=== PATIENT | male | born 1985 | race Caucasian/White ===

== ENCOUNTER 2022-06-19 14:22 | Inpatient (IN) | payer OTHER, SELFPAY ==
[2022-06-19 14:34] VITALS: BP 147/93; BP 148/87; PULSE 85; PULSE 97; RESP 20; TEMP 37.2; O2SAT 97; O2SAT 98; BMI 21.1
--- NOTE | 2022-06-19 14:42 | PC.NURSE ---
Patient AOx 4 no distress noted no respiratory issues reported. Relapse on Heroin this weekend used this AM, abrasions noted to BUE patient unsure of cause reports blacking out this weekend. Patietn ambulatory with steady independent gait. Will CTM
[2022-06-19 15:28] LABS: Amphetamine Screen Urine Not Detected (Not Detect); Barbiturates, Urine Not Detected (Not Detect); Benzodiazepines Screen Urine Not Detected (Not Detect); Cannabinoid Screen Urine POSITIVE (Not Detect); Cocaine Screen Urine POSITIVE (Not Detect); Fentanyl, urine POSITIVE (Not Detect); Opiate Screen Urine POSITIVE (Not Detect); Phencyclidine Screen Urine Not Detected (Not Detect)
--- NOTE | 2022-06-19 15:48 | MHC.CARE ---
Pt was evaluated by [facility] in the community and is a bedsearch at this time.
--- NOTE | 2022-06-19 15:53 | MHC.CARE ---
1400 Call from [facility] clinician, Faiza who provided information regarding this patient who was evaluated in the community after he called seeking help, disposition inpatient psychiatric care. By report, is pressured and tangential, has several self-inflicted prasad on his arms, used two bags of Fentanyl today. [facility] will continue to follow patient while he is here and conduct bedsearch.
[2022-06-19 16:50] LABS: MANUAL DIFF FLAG NO
[2022-06-19 16:51] LABS: Basophils Percent Auto 0.2 % (0-2); Eosinophils Absolute Auto 0.1 X10*3/uL (0.0-0.4); Eosinophils Percent Auto 0.6 % (0-4); Hematocrit 37.9 % (42.0-52.0); Hemoglobin 12.9 g/dl (14.0-18.0); Imm Gran Abs Auto 0.03 X10*3/uL (0.00-0.03); Imm Gran Pct Auto 0.3 % (0.0-0.4); Lymphocytes Absolute Auto 2.3 X10*3/uL (1.2-4.9); Lymphocytes Percent Auto 23.5 % (20-40); Mean Corpuscular Volume 85.2 fL (80.0-98.0); Mean Platelet Volume 9.2 fL (9.4-12.4); Monocytes Absolute Auto 0.8 X10*3/uL (0.1-1.2); Monocytes Percent Auto 7.9 % (2-11); Neutrophils Absolute Auto 6.5 x10*3/uL (2.0-8.3); Neutrophils Percent Auto 67.5 % (45-73); Platelet Count 264 X10*3/uL (160-400); Red Blood Count 4.45 X10*6/uL (4.60-5.80); Red Cell Distribution Width 12.6 % (11.0-16.0); White Blood Count 9.7 X10*3/uL (4.8-10.8)
[2022-06-19 17:03] LABS: COVID-19 Test Negative (Negative); IDNOW Serial# 16C4AD1C
[2022-06-19 17:08] LABS: Anion Gap 13 (12-20); Blood Urea Nitrogen 13 mg/dL (9-16); Calcium 9.4 mg/dL (8.4-10.2); Carbon Dioxide 28 mmol/L (22-29); Chloride 102 mmol/L (96-108); Creatinine Clr Calc Pharmacy 122.3; Estimated Glomerular Filt Rate > 60; Glucose Random 77 mg/dL (60-115); Potassium 4.4 mmol/L (3.3-5.1); Sodium 139 mmol/L (135-145)
--- NOTE | 2022-06-19 17:08 | ECG_ITS ---
Test Reason : cocaine use Blood Pressure : / mmHG Vent. Rate : 061 BPM Atrial Rate : 061 BPM P-R Int : 172 ms QRS Dur : 092 ms QT Int : 402 ms P-R-T Axes : 069 028 046 degrees QTc Int : 404 ms Normal sinus rhythm Normal ECG No previous ECGs available Referred By: Pennie Farrell Electronically Signed By:VALERY ZHANG
[2022-06-19] MEDS: Nicotine Polacrilex 2 MG GUM BUCCAL ×3 (17:28→23:05)
--- NOTE | 2022-06-19 17:55 | ED.PSYCH ---
HPI - Psych General Chief Complaint: ETOH/Substance Use Stated Complaint: CRISIS,SEEN IN COMMUNITY Time Seen by Provider: 06/19/22 14:34 Source: patient Mode of arrival: EMS Limitations: no limitations History of Present Illness HPI Narrative: Patient is a 36-year-old male who presents to the emergency department with reports of feeling unwell. He reports that he recently relapsed with opiates, states that he used half a bag of heroin earlier this morning. He states that he has been feeling dysregulated. Has not been taking any of his psych medications since before COVID. He contacted [facility]/ [facility] by phone, he reports that they both showed up to his house, and recommended inpatient psych bed search for his increasing depression. Denies any suicidal or homicidal ideations. Denies any interest in detox. He has no physical complaints at this time. Upon examination he is noted to have what appears to be potential prasad/abrasions to the bilateral arms. He states he is not sure how he sustained these, he states that he awoke one morning with them present over the past 2 days after using heroin the night previously. Related Data Allergies Allergy/AdvReac Type Severity Reaction Status Date / Time No Known Allergies Allergy Unverified 02/11/20 17:43 [No Known Allergies*] Review of Systems Review of Systems: Constitutional : No Fever, No Chills ENT/Mouth : No Ear Pain, No Nasal Congestion, No sore throat Eyes: No Eye Pain, No Swelling, No Redness Cardiovascular : No Chest Pain, No SOB Respiratory : No Cough, No Sputum, No Dyspnea Gastrointestinal : No Nausea, No Vomiting, No Diarrhea, No Hematochezia, No Melena Genitourinary : No Dysuria, No Urinary Frequency, No Hematuria Musculoskeletal : No Myalgias Skin : As noted in HPI Neuro : No Weakness, No Numbness, No Paresthesias, No Dizziness, No Headache Psych : positive Anxiety, positive Depression, no SI/HI Heme/Lymph: No Lymphadenopathy Endocrine : No Polyuria, No Polydipsia Yes all other systems are reviewed and are negative [facility] Past Medical History Attestation statement: The following information was validated with the patient. Source: old records reviewed Social History Social History Advance Directives: No Advance Directives Information Provided: No Physical Exam Vital Signs: Vital Signs: Last Vital Signs Temp 98.9 F 06/19/22 14:34 Pulse 85 06/19/22 14:34 Resp 20 06/19/22 14:34 BP 147/93 H 06/19/22 14:34 Pulse Ox 97 06/19/22 14:34 O2 Del Method 06/19/22 14:34 BMI result Body Mass Index 21.1 Appearance: Alert.?Oriented to person, place and time. No acute distress.?Normal affect. Eyes: Pupils equal, round and reactive to light.? ENT: Pharynx normal.?? Neck: Normal inspection.? Neck supple.?? CVS: Heart sounds normal. Normal heart rate and rhythm.? Pulses normal.?? Respiratory: No respiratory distress.? Lung sounds clear to auscultation bilaterally?? Abdomen: Soft and non-tender. Normoactive bowel sounds. Skin: Skin warm and dry.? Normal skin color.? Extremities: No lower extremity edema.? Neuro: Moves all extremities spontaneously. Sensation intact bilaterally. CN II-XII intact. No focal neuro deficits. Ambulates with normal steady gait. Course Reevaluation(s) Reevaluation #1: I spoke with care team, patient was in fact evaluated in the community by [facility], there were concerns for patient's behavior; manic, not sleeping, restless, endorsing SI with plan to overdose. At this time patient is an inpatient bed search. Labs are overall unremarkable. Viral testing negative. EKG revealing normal sinus rhythm, no acute ischemic findings, ventricular rate 61. Drug of abuse screen positive for opiates, fentanyl, cocaine, marijuana. At this time he is without any physical complaints. Continues to decline oral antibiotics, topical bacitracin twice daily ordered. At this time he will be placed in physician observation, the reason for observation being additional time is required for bed search to ensue. Time: 18:12 Medications Administered Generic Name Dose Route Start Last Admin Trade Name Freq PRN Reason Stop Dose Admin Nicotine Polacrilex 2 mg 06/19/22 17:14 06/19/22 17:28 Nicotine Polacrilex 2 Mg Gum BUCCAL 2 mg ONCE PRN Administration Nicotine Cravings Medical Decision Making Medical Decision Making [facility] Narrative: Patient is a 36-year-old male who presents to emergency department poly substance use, increasing depression, and feeling dysregulated. Has not been taking any psych medications for a few years. Abrasions to bilateral arms concerning for potential thermal burn with early cellulitis, I advised oral antibiotics however patient declines, stating if they become worse he would consider oral antibiotics at that time. He is amenable to have topical antibiotics applied. Admission/Observation Consideration of admission/observation: Escalation of care including admission/observation considered Lab Data MDM Lab Attestation statement: I reviewed the patient's lab results. 06/19/22 16:44 06/19/22 16:44 Labs: Lab Results 06/19/22 06/19/22 06/19/22 Range/Units 15:09 16:44 16:44 WBC 9.7 (4.8-10.8) X10*3/uL RBC 4.45 L (4.60-5.80) X10*6/uL Hgb 12.9 L (14.0-18.0) g/dl Hct 37.9 L (42.0-52.0) % MCV 85.2 (80.0-98.0) fL MCH 29.0 (27.0-33.0) pg MCHC 34.0 (31.0-36.0) g/dl RDW 12.6 (11.0-16.0) % Plt Count 264 (160-400) X10*3/uL MPV 9.2 L (9.4-12.4) fL Immature Gran % (Auto) 0.3 (0.0-0.4) % Neut % (Auto) 67.5 (45-73) % Lymph % (Auto) 23.5 (20-40) % [place] % (Auto) 7.9 (2-11) % Eos % (Auto) 0.6 (0-4) % Baso % (Auto) 0.2 (0-2) % Lymph # (Auto) 2.3 (1.2-4.9) X10*3/uL [place] # (Auto) 0.8 (0.1-1.2) X10*3/uL Eos # (Auto) 0.1 (0.0-0.4) X10*3/uL Baso # (Auto) 0.0 (0.0-0.2) X10*3/uL Abs Immat Gran (auto) 0.03 (0.00-0.03) X10*3/uL Absolute Neuts (auto) 6.5 (2.0-8.3) x10*3/uL Absolute Nucleated RBC 0.000 (0.0-0.012) X10*3/uL Nucleated RBC % (auto) 0.0 (0.0-0.2) /100WBC Sodium 139 (135-145) mmol/L Potassium 4.4 (3.3-5.1) mmol/L Chloride 102 (96-108) mmol/L Carbon Dioxide 28 (22-29) mmol/L Anion Gap 13 (12-20) BUN 13 (9-16) mg/dL Creatinine 0.84 (0.5-1.4) mg/dL Estim Creat Clear Calc 122.3 Estimated GFR > 60 Random Glucose 77 (60-115) mg/dL Calcium 9.4 (8.4-10.2) mg/dL Urine Opiates Screen POSITIVE H (Not Detect) Urine Fentanyl Screen POSITIVE H (Not Detect) Ur Barbiturates Screen Not Detected (Not Detect) Ur Phencyclidine Scrn Not Detected (Not Detect) Ur Amphetamines Screen Not Detected (Not Detect) U Benzodiazepines Scrn Not Detected (Not Detect) Urine Cocaine Screen POSITIVE H (Not Detect) U Marijuana (THC) Screen POSITIVE H (Not Detect) COVID-19 (EDIL) (Negative) COVID-19 Clin Com 06/19/22 Range/Units 16:44 WBC (4.8-10.8) X10*3/uL RBC (4.60-5.80) X10*6/uL Hgb (14.0-18.0) g/dl Hct (42.0-52.0) % MCV (80.0-98.0) fL MCH (27.0-33.0) pg MCHC (31.0-36.0) g/dl RDW (11.0-16.0) % Plt Count (160-400) X10*3/uL MPV (9.4-12.4) fL Immature Gran % (Auto) (0.0-0.4) % Neut % (Auto) (45-73) % Lymph % (Auto) (20-40) % [place] % (Auto) (2-11) % Eos % (Auto) (0-4) % Baso % (Auto) (0-2) % Lymph # (Auto) (1.2-4.9) X10*3/uL [place] # (Auto) (0.1-1.2) X10*3/uL Eos # (Auto) (0.0-0.4) X10*3/uL Baso # (Auto) (0.0-0.2) X10*3/uL Abs Immat Gran (auto) (0.00-0.03) X10*3/uL Absolute Neuts (auto) (2.0-8.3) x10*3/uL Absolute Nucleated RBC (0.0-0.012) X10*3/uL Nucleated RBC % (auto) (0.0-0.2) /100WBC Sodium (135-145) mmol/L Potassium (3.3-5.1) mmol/L Chloride (96-108) mmol/L Carbon Dioxide (22-29) mmol/L Anion Gap (12-20) BUN (9-16) mg/dL Creatinine (0.5-1.4) mg/dL Estim Creat Clear Calc Estimated GFR Random Glucose (60-115) mg/dL Calcium (8.4-10.2) mg/dL Urine Opiates Screen (Not Detect) Urine Fentanyl Screen (Not Detect) Ur Barbiturates Screen (Not Detect) Ur Phencyclidine Scrn (Not Detect) Ur Amphetamines Screen (Not Detect) U Benzodiazepines Scrn (Not Detect) Urine Cocaine Screen (Not Detect) U Marijuana (THC) Screen (Not Detect) COVID-19 (EDIL) Negative (Negative) COVID-19 Clin Com See Note Independent Interpretation I performed an independent interpretation of an: EKG (As noted in course) Prescription Management I considered prescription management with: Antibiotic Discharge Plan Discharge Clinical Impression: Polysubstance abuse, Depression, Suicidal ideation Patient Disposition: Still a Patient
[2022-06-19 19:02] LABS: Ethanol < 10 mg/dL
[2022-06-19 19:28] VITALS: BP 134/73; PULSE 79; RESP 18; O2SAT 95
[2022-06-19] MEDS: hydrOXYzine HCL 50 MG TABLET PO (20:12)
[2022-06-19] MEDS: Ibuprofen 400 MG TABLET PO (20:16)
[2022-06-19] MEDS: Bacitracin Oint 0.9 GM PACKET 1 APPL TOPICAL (20:16)
[2022-06-19 22:38] VITALS: BP 137/82; PULSE 64; RESP 16; TEMP 36.6; O2SAT 98
--- NOTE | 2022-06-19 22:39 | PC.ADMIT ---
Kenny was admitted to M3 at 21:35 from Pod on a CV for treatment of SI with plan to overdose. Precipitant of admission include Increasing depression starting around the holidays. Kenny reported that around the holidays he relapsed and used fentanyl, opiates, and cocaine along with marijuana after a period of years clean and sober. Reported that his impulse control is poor. Reports that ?I feel like lately I am a victim of my own emotions. I can?t use logic to make decisions, and that's childish and dangerous?. Patient engaged in self harming behavior by burning himself on BUE and neck on saturday. Reported that he does not remember a period of time Saturday night to saturday morning, including when the self harming behaviors occurred.? Patient is alert and oriented x4. Pleasant and cooperative with admission. Endorsed high depression and ?situational anxiety?. Currently Denies SI/HI/AH/VH. Denying thoughts or urges to self harm. Thought Process appears linear and clear with good insight. Speech was a little pressured, but appropriate. Eye contact was appropriate. Reported that he has had a decreased appetite and lost greater than 20 bounds. Endorsed poor sleep, difficulty staying asleep. Toxicology was positive for fentanyl, opiates, and cocaine along with marijuana. Pt not showing any signs of withdrawal at this time. VSS and WNL upon admission. Presents with prasad/scabs on BUE and neck area. Patient denied pain, and no s/s of infection. 15 minute safety checks initiated.? Reported his goal for discharge was to be set up without patient patient providers, Reported he was on vyvanse in prior years and it was effective and would like to get back on it. And wants to work on his coping skills.? Patient on CIWA q8 hours. Pt scored a 1 at admission.
[2022-06-19] MEDS: Acetaminophen 325 MG TABLET 650 MG PO (23:04)
[2022-06-19] MEDS: traZODone HCL 50 MG TABLET PO (23:05)
[2022-06-19] MEDS: hydrOXYzine HCL 25 MG TABLET PO (23:05)
--- NOTE | 2022-06-19 23:31 | PC.NURSE ---
flu shot-offered administration at this time but declined requesting to have in AM
--- NOTE | 2022-06-20 06:51 | PC.NURSE ---
CIWA-woken up for CIWA assessment. upset at being woken up early, firmly told that to t/w but was respectful. CIWA completed.
[2022-06-20] MEDS: hydrOXYzine HCL 25 MG TABLET PO ×3 (08:27→21:33)
[2022-06-20] MEDS: Acetaminophen 325 MG TABLET 650 MG PO ×2 (08:27→14:26)
--- NOTE | 2022-06-20 09:14 | PC.NURSE ---
Patient offered flu vaccine and refused
[2022-06-20 09:26] LABS: Alanine Aminotransferase 32 U/L (0-40); Albumin Level 4.2 g/dL (3.5-5.0); Alkaline Phosphatase 54 U/L (39-117); Anion Gap 12 (12-20); Aspartate Amino Transferase 32 U/L (5-37); Bilirubin Total 0.9 mg/dL (0.0-1.0); Blood Urea Nitrogen 13 mg/dL (9-16); Calcium 9.2 mg/dL (8.4-10.2); Carbon Dioxide 27 mmol/L (22-29); Chloride 104 mmol/L (96-108); Cholesterol 150 mg/dL; Creatinine Clr Calc Pharmacy 130.1; Estimated Glomerular Filt Rate > 60; Glucose Fasting 118 mg/dL (60-99); HDL Cholesterol 63 mg/dL; LDL Cholesterol Calculated 78 mg/dl; Potassium 4.3 mmol/L (3.3-5.1); Sodium 139 mmol/L (135-145); Total Protein 6.5 g/dL (6.5-8.0); Triglycerides 45 mg/dL
--- NOTE | 2022-06-20 09:29 | HO.PSYADMNOT ---
HPI Date of Service: 06/20/22 Chief Complaint: SI Sources of Information: patient interviewed, chart reviewed and crisis/core team assessment reviewed HPI Subjective Notes: Romo Warning (given and shows understanding) and Conditional Voluntary Narrative: Mr. Carpenter is a 36 year-old male with hx of opioid use disorder in remission for 3 years and relapsed in April 2022. Pt reports he started suboxone 2 weeks ago. He self presented to [facility] ED reporting increase depression, suicidal ideation with plan to OD. Utox in the ED positive for cocaine, opioids and fentanyl. On the unit, pt reports he relapsed in April for unclear reasons. He is not able to identify trigger. He reports on Saturday he was told by his employer that he had missed some hrs at work. He reports he was upset and proceeded to binge on drugs. He reports he does not want to be on suboxone. Pt asks this writer technical publications to do taper with suboxone but does not want to continue long-term. 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 He reports he thinks he has ADHD and asks if he can receive prescription for vyvanse or adderall. Pt reports he was not not any medications during time he was sober for past 3 days. He denies VH/AH. No overt delusions noted or reported. Past Psychiatric History: Inpatient: several more than 3-4 years ago. OP: none Suicide attempt: none Medical Evaluation Reviewed: Yes [facility] Social History: Lives with GF. Working. Substance History: opioids: relapsed in 04/2022 after 3 years of sobriety. Pt reports daily use of fentanyl and heroin about 2-3 bags daily. Cocaine: daily since he relapsed. Denies alcohol use. Trauma History: unknown Diagnostics Vital Signs (24Hr): Vital Signs - 24 hr 06/19/22 14:34 06/19/22 19:28 06/19/22 22:38 Temperature 98.9 F 97.8 F Pulse Rate 85 79 64 Respiratory Rate 20 18 16 Blood Pressure 147/93 H 134/73 137/82 Pulse Oximetry 97 95 98 Oxygen Delivery Method Room Air Room Air Room Air BMI result Body Mass Index 21.1 Labs 06/19/22 16:44 06/20/22 08:33 Labs: Laboratory Results - last 48 hr 01/24/23 01/24/23 01/24/23 15:09 16:44 16:44 WBC 9.7 RBC 4.45 L Hgb 12.9 L Hct 37.9 L MCV 85.2 MCH 29.0 MCHC 34.0 RDW 12.6 Plt Count 264 MPV 9.2 L Immature Gran % (Auto) 0.3 Neut % (Auto) 67.5 Lymph % (Auto) 23.5 [place] % (Auto) 7.9 Eos % (Auto) 0.6 Baso % (Auto) 0.2 Lymph # (Auto) 2.3 [place] # (Auto) 0.8 Eos # (Auto) 0.1 Baso # (Auto) 0.0 Abs Immat Gran (auto) 0.03 Absolute Neuts (auto) 6.5 Absolute Nucleated RBC 0.000 Nucleated RBC % (auto) 0.0 Sodium 139 Potassium 4.4 Chloride 102 Carbon Dioxide 28 Anion Gap 13 BUN 13 Creatinine 0.84 Estim Creat Clear Calc 122.3 Estimated GFR > 60 Random Glucose 77 Fasting Glucose Calcium 9.4 Total Bilirubin AST ALT Alkaline Phosphatase Total Protein Albumin Triglycerides Cholesterol LDL Cholesterol, Calc HDL Cholesterol Urine Opiates Screen POSITIVE H Urine Fentanyl Screen POSITIVE H Ur Barbiturates Screen Not Detected Ur Phencyclidine Scrn Not Detected Ur Amphetamines Screen Not Detected U Benzodiazepines Scrn Not Detected Urine Cocaine Screen POSITIVE H U Marijuana (THC) Screen POSITIVE H Ethyl Alcohol COVID-19 (EDIL) COVID-19 Clin Com 06/19/22 06/19/22 06/20/22 16:44 16:44 08:33 WBC RBC Hgb Hct MCV MCH MCHC RDW Plt Count MPV Immature Gran % (Auto) Neut % (Auto) Lymph % (Auto) [place] % (Auto) Eos % (Auto) Baso % (Auto) Lymph # (Auto) [place] # (Auto) Eos # (Auto) Baso # (Auto) Abs Immat Gran (auto) Absolute Neuts (auto) Absolute Nucleated RBC Nucleated RBC % (auto) Sodium 139 Potassium 4.3 Chloride 104 Carbon Dioxide 27 Anion Gap 12 BUN 13 Creatinine 0.79 Estim Creat Clear Calc 130.1 Estimated GFR > 60 Random Glucose Fasting Glucose 118 H Calcium 9.2 Total Bilirubin 0.9 AST 32 ALT 32 Alkaline Phosphatase 54 Total Protein 6.5 Albumin 4.2 Triglycerides 45 Cholesterol 150 LDL Cholesterol, Calc 78 HDL Cholesterol 63 Urine Opiates Screen Urine Fentanyl Screen Ur Barbiturates Screen Ur Phencyclidine Scrn Ur Amphetamines Screen U Benzodiazepines Scrn Urine Cocaine Screen U Marijuana (THC) Screen Ethyl Alcohol < 10 COVID-19 (EDIL) Negative COVID-19 Clin Com See Note Meds/Allergies Meds Home Medications Medication Instructions Recorded Confirmed Type nicotine (polacrilex) 2 mg gum 1 ea PO NEEDED 06/19/22 06/19/22 History Allergies Allergies Allergy/AdvReac Type Severity Reaction Status Date / Time No Known Allergies Allergy Unverified 02/11/20 17:43 [No Known Allergies*] Mental Status Exam Mental Status Exam Narrative: Appearance: wearing casual clothing, fair hygiene, in NAD Behavior: cooperative Speech: clear, normal rate/rhythm/volume, spontaneous Psychomotor: no agitation or retardation noted TP: linear TC: no overt psychosis, feeling unwell physically due to opioid withdrawal Mood: anxious Affect: uncomfortable physically due to opioid withdrawal SI: denies HI: denies AH/VH: denies Delusions: none Insight/judgment: fair x 2. Memory/cog: alert, oriented x 3. grossly intact to conversational testing. Assessment & Plan Assessment & Plan (1) MDD (major depressive disorder), recurrent episode, moderate: Status: Acute Code(s): F33.1 - Major depressive disorder, recurrent, moderate (2) Opioid use disorder, moderate, dependence: Status: Acute Code(s): F11.20 - Opioid dependence, uncomplicated (3) Cocaine use disorder, moderate, dependence: Status: Acute Code(s): F14.20 - Cocaine dependence, uncomplicated Plan Mr. Carpenter is a 36 year-old male with hx of opioid use, sobriety of 3 years and recently relapsed in 04/2022. Utox positive cocaine, opioids and fentanyl. Pt recently started on suboxone and states he does not want to be back on it. He reports he was sober for 3 years without MAT and wants to try to do that again. Pt does agree to taper with suboxone and received one time dose of suboxone 2mg/0.5mg. Comfort meds started. PLAN 1. Admit to M3, CV, 15 minutes checks for safety 2. COWs, comfort meds 3. Collateral information 4. Aftercare planning. Patient educated on: diagnosis and medication risk/benefits Informed Consent: understands Reason for continued inpatient stay Substantial Risk for: harm to self Statement Statement: I have reviewed the history and physical and performed a pertinent examination on my patient. No changes have occurred unless specified. If the History and Physical was not performed prior to admission, the Hospitalist's service will be consulted for completing the admission physical. Time Spent With Patient Time: Total time managing care of this patient today ____ minutes.
[2022-06-20 09:37] VITALS: BP 141/92; PULSE 77; RESP 15; TEMP 36.7; O2SAT 98
[2022-06-20] MEDS: Bacitracin Oint 0.9 GM PACKET 1 APPL TOPICAL ×2 (10:08→21:29)
[2022-06-20] MEDS: cloNIDine HCL 0.1 MG TABLET PO ×3 (10:16→21:30)
[2022-06-20] MEDS: Famotidine 20 MG TABLET PO ×2 (10:16→21:29)
[2022-06-20] MEDS: Loperamide HCl 2 MG CAPSULE PO (10:16)
[2022-06-20] MEDS: Buprenorphine/Naloxone 2/0.5mg FILM 1 FILM SUBLINGUAL (10:33)
[2022-06-20] MEDS: Nicotine Polacrilex 2 MG GUM BUCCAL ×4 (11:04→21:29)
[2022-06-20 11:15] LABS: Iron 39 mcg/dL (45-160); Percent Iron Saturation 15 % (15-50); Total Iron Binding Capacity 255 mcg/dL (228-428); Unsaturated Iron Binding 216 ug/dL
[2022-06-20 11:33] LABS: TSH reflex Free T4 0.16 uIU/mL (0.32-4.0)
[2022-06-20 11:46] LABS: Folate 9.4 ng/mL (> or = 4.0); Vitamin B12 438 pg/mL (200-900)
[2022-06-20 12:07] LABS: Free T4 (Free Thyroxine) 1.01 ng/dL (0.71-1.85)
--- NOTE | 2022-06-20 12:34 | MHC.CLN ---
NUTRITION CONSULT FOR WEIGHT LOSS. PATIENT REPORTS 20# WEIGHT LOSS X ONE MONTH. WOULD LIKE ENSURE TID. PROVIDES 1050 KCALS, 60 G PROTEIN. SELECTED MENU ITEMS WITH GSR AND AWARE OF SNACKS ON UNIT. REPORTS THAT CURRENTLY NOT EATING WELL. CONTINUE REGULAR DIET WITH ENSURE TID.
[2022-06-20] MEDS: Baclofen 10 MG TABLET PO ×2 (14:30→21:29)
[2022-06-20] MEDS: traZODone HCL 50 MG TABLET PO (21:30)
[2022-06-20 21:34] VITALS: BP 119/74; PULSE 64; TEMP 36.4; O2SAT 99
[2022-06-21] MEDS: cloNIDine HCL 0.1 MG TABLET PO ×2 (03:41→10:50)
[2022-06-21 08:00] VITALS: BP 140/79; PULSE 68; RESP 16; TEMP 36.8; O2SAT 96
[2022-06-21] MEDS: Famotidine 20 MG TABLET PO ×2 (08:08→20:52)
[2022-06-21] MEDS: Baclofen 10 MG TABLET PO ×3 (08:08→20:52)
[2022-06-21] MEDS: Nicotine Polacrilex 2 MG GUM BUCCAL ×5 (08:14→17:33)
[2022-06-21] MEDS: hydrOXYzine HCL 25 MG TABLET PO ×2 (08:14→16:20)
[2022-06-21] MEDS: Buprenorphine/Naloxone 2/0.5mg FILM 0.5 FILM SUBLINGUAL (09:19)
--- NOTE | 2022-06-21 09:27 | P.PNPSI_ITS ---
Subjective Subjective Date of Service: 06/21/22 Reason For Visit: SI Subjective Notes: Conditional Voluntary Interim History: Pt reports having a hard time and craving opioids. He had suboxone 1mg with fair effect and and asks for another 2mg. He is hesitant about going back on suboxone. He denies SI/HI. He reports feeling very anxious and restless. He reports fair sleep. No VH/AH. tearful at times as he reports he fears he will lose everything he has worked for so hard for the past 3 years that he has been sober. Medication Compliance: Yes Side effects from medications: No Review of Systems Review of Systems Pt denies chest pain, visual changes. No hx of seizures. Pt reports opioid withdrawal symptoms including GI discomfort, muscle aches, anxious mood, running nose. Yes all other systems are reviewed and are negative Constitutional: Reports as per [facility] Mental Status Exam Mental Status Exam Narrative: Appearance: wearing casual clothing, fair hygiene, in NAD Behavior: cooperative Speech: clear, normal rate/rhythm/volume, spontaneous Psychomotor: no agitation or retardation noted TP: linear TC: no overt psychosis, feeling unwell physically due to opioid withdrawal Mood: anxious Affect: uncomfortable physically due to opioid withdrawal SI: denies HI: denies AH/VH: denies Delusions: none Insight/judgment: fair x 2. Memory/cog: alert, oriented x 3. grossly intact to conversational testing. Diagnostics Vital Signs (24Hr): Vital Signs - 24 hr 06/21/22 18:00 Temperature 98.3 F Pulse Rate 70 Respiratory Rate 18 Blood Pressure 128/80 Pulse Oximetry 98 Oxygen Delivery Method Room Air BMI result Body Mass Index 20.0 Labs 06/19/22 16:44 06/20/22 08:33 Labs: Laboratory Results - last 48 hr 06/20/22 06/20/22 10:17 10:17 Iron 39 L TIBC 255 % Saturation 15 Unsat Iron Binding 216 Vitamin B12 438 Folate 9.4 TSH 0.16 L Free T4 1.01 Medications Medications Current Medications Acetaminophen (Acetaminophen 325 Mg Tablet) 650 mg PO Q6H PRN PRN Reason: Headache/Pain Mild Scale (1-3) Last Admin: 06/20/22 14:26 Dose: 650 mg Al Hydroxide/Mg Hydroxide (Magnesium Hydrox/Alum Hydrox 30 Ml Oral.Susp) 30 ml PO Q6H PRN PRN Reason: Heartburn/Nausea Bacitracin (Bacitracin Oint 0.9 Gm Packet) 1 appl TOPICAL BID [facility]; Protocol Last Admin: 06/21/22 21:02 Dose: Not Given Baclofen (Baclofen 10 Mg Tablet) 10 mg PO TID [facility] Last Admin: 06/22/22 08:11 Dose: 10 mg Buprenorphine/Naloxone (Buprenorphine/Naloxone 2/0.5mg Film) 1 film SUBLINGUAL DAILY [facility] Last Admin: 06/22/22 08:11 Dose: 1 film Clonidine HCl (Clonidine Hcl 0.1 Mg Tablet) 0.1 mg PO TID PRN; Protocol PRN Reason: opioid withdrawal Last Admin: 06/21/22 10:50 Dose: 0.1 mg Famotidine (Famotidine 20 Mg Tablet) 20 mg PO BID [facility] Last Admin: 06/22/22 08:11 Dose: 20 mg Hydroxyzine HCl (Hydroxyzine Hcl 25 Mg Tablet) 25 mg PO Q6H PRN PRN Reason: Anxiety Last Admin: 06/22/22 06:43 Dose: 25 mg Loperamide HCl (Loperamide Hcl 2 Mg Capsule) 2 mg PO Q4H PRN PRN Reason: loose stools Last Admin: 06/20/22 10:16 Dose: 2 mg Magnesium Hydroxide (Milk Of Magnesia 30 Ml Oral.Susp) 30 ml PO DAILY PRN PRN Reason: Constipation Nicotine (Nicotine 21 Mg Patch.Td24) 21 mg TRANSDERMA DAILY [facility] Last Admin: 06/21/22 09:11 Dose: Not Given Nicotine Polacrilex (Nicotine Polacrilex 2 Mg Gum) 2 mg BUCCAL ONCE PRN PRN Reason: Nicotine Cravings Last Admin: 06/21/22 13:34 Dose: 2 mg Nicotine Polacrilex (Nicotine Polacrilex 2 Mg Gum) 2 mg BUCCAL Q1H PRN PRN Reason: Nicotine Cravings Trazodone HCl (Trazodone Hcl 50 Mg Tablet) 50 mg PO BEDTIME PRN PRN Reason: Insomnia Last Admin: 06/21/22 20:55 Dose: 50 mg Allergies Allergies Allergy/AdvReac Type Severity Reaction Status Date / Time No Known Allergies Allergy Unverified 02/11/20 17:43 [No Known Allergies*] Assessment & Plan Assessment & Plan (1) MDD (major depressive disorder), recurrent episode, moderate: Status: Acute Code(s): F33.1 - Major depressive disorder, recurrent, moderate (2) Opioid use disorder, moderate, dependence: Status: Acute Code(s): F11.20 - Opioid dependence, uncomplicated Assessment and Plan: * continue suboxone 2mg QD * has appt with outpatient provider soon * no additional follow up at this time--please reconsult if needed (3) Cocaine use disorder, moderate, dependence: Status: Acute Code(s): F14.20 - Cocaine dependence, uncomplicated Plan PLAN 06/21- continue current medications. Reason for contiued inpatient stay Substantial Risk for: harm to self Time Spent With Patient Time: Total time managing care of this patient today ____ minutes.
[2022-06-21] MEDS: LORazepam 1 MG TABLET 2 MG PO (11:31)
[2022-06-21] MEDS: Buprenorphine/Naloxone 2/0.5mg FILM 1 FILM SUBLINGUAL (11:32)
--- NOTE | 2022-06-21 16:15 | HO.ADDICTCON ---
History of Present Illness Date of Service: 06/21/2022 Chief Complaint: SI Reason for Consult: OUD-recent recurrence HPI Narrative: Patient is a 36 year old male currently admitted to unit with worsening depression following relapse on heroin and cocaine after 3 years in recovery. Consult was requested as patient was considering tapering off of buprenorphine, which he only recently restarted. Patient seen on unit. Awake, alert, pleasant and engaged in interview. Patient quite talkative during interview--a bit presssured. Reporting he has been in recovery up until April when he used opiods again for a short period, then again this weekend. He has several healing prasad on his arms and back that he is unaware of how they occurred. He reports that he was initially considering tapering off of suboxone, however the anxiety and withdrawal sx he felt this morning, influenced him to change his mind. He would like to continue on Suboxone 2mg daily. He is currently seen by [facility] ( a telehealth OUD treatment provider). 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 Several times he indicated that he has racing thoughts, and feels that he can not let go of things that occur and find that they start to impact other areas of his life, including his mood. He reports that starting in February he was having a hard time with things that happened and would catastrophize and perseverate for days. He reports that medication and mindfulness is something that was very helpful to him, but at this time is unable to utilize these skills because of the racing thoughts. At the time patient was seen, he appeared comfortable, and denied any withdrawal sx. Does not want to increase dose any further at this time. He has been on subxone in the past, as well as Sublocade, so he is quite familiar with this medication Past Psychiatric History: Inpatient: several more than 3-4 years ago. OP: none Suicide attempt: none Review of Systems Constitutional: Reports as per HPI Diagnostics Vital Signs (24Hr): Vital Signs - 24 hr 06/20/22 21:34 06/21/22 08:00 Temperature 97.5 F 98.2 F Pulse Rate 64 68 Respiratory Rate 16 Blood Pressure 119/74 140/79 H Pulse Oximetry 99 96 Oxygen Delivery Method Room Air Room Air BMI result Body Mass Index 20.0 Labs 01/24/23 16:44 06/20/22 08:33 Labs: Laboratory Results - last 48 hr 06/19/22 06/19/22 06/19/22 16:44 16:44 16:44 WBC 9.7 RBC 4.45 L Hgb 12.9 L Hct 37.9 L MCV 85.2 MCH 29.0 MCHC 34.0 RDW 12.6 Plt Count 264 MPV 9.2 L Immature Gran % (Auto) 0.3 Neut % (Auto) 67.5 Lymph % (Auto) 23.5 Tw[place]gs % (Auto) 7.9 Eos % (Auto) 0.6 Baso % (Auto) 0.2 Lymph # (Auto) 2.3 [place]gs # (Auto) 0.8 Eos # (Auto) 0.1 Baso # (Auto) 0.0 Abs Immat Gran (auto) 0.03 Absolute Neuts (auto) 6.5 Absolute Nucleated RBC 0.000 Nucleated RBC % (auto) 0.0 Sodium 139 Potassium 4.4 Chloride 102 Carbon Dioxide 28 Anion Gap 13 BUN 13 Creatinine 0.84 Estim Creat Clear Calc 122.3 Estimated GFR > 60 Random Glucose 77 Fasting Glucose Calcium 9.4 Iron TIBC % Saturation Unsat Iron Binding Total Bilirubin AST ALT Alkaline Phosphatase Total Protein Albumin Triglycerides Cholesterol LDL Cholesterol, Calc HDL Cholesterol Vitamin B12 Folate TSH Free T4 Ethyl Alcohol COVID-19 ([facility]IL) Negative COVID-19 Clin Com See Note 06/19/22 06/20/22 06/20/22 16:44 08:33 10:17 WBC RBC Hgb Hct MCV MCH MCHC RDW Plt Count MPV Immature Gran % (Auto) Neut % (Auto) Lymph % (Auto) Twiggs % (Auto) Eos % (Auto) Baso % (Auto) Lymph # (Auto) [place]iggs # (Auto) Eos # (Auto) Baso # (Auto) Abs Immat Gran (auto) Absolute Neuts (auto) Absolute Nucleated RBC Nucleated RBC % (auto) Sodium 139 Potassium 4.3 Chloride 104 Carbon Dioxide 27 Anion Gap 12 BUN 13 Creatinine 0.79 Estim Creat Clear Calc 130.1 Estimated GFR > 60 Random Glucose Fasting Glucose 118 H Calcium 9.2 Iron 39 L TIBC 255 % Saturation 15 Unsat Iron Binding 216 Total Bilirubin 0.9 AST 32 ALT 32 Alkaline Phosphatase 54 Total Protein 6.5 Albumin 4.2 Triglycerides 45 Cholesterol 150 LDL Cholesterol, Calc 78 HDL Cholesterol 63 Vitamin B12 Folate TSH 0.16 L Free T4 1.01 Ethyl Alcohol < 10 COVID-19 ([facility]) COVID-19 [employer] Com 06/20/22 10:17 WBC RBC Hgb Hct MCV MCH MCHC RDW Plt Count MPV Immature Gran % (Auto) Neut % (Auto) Lymph % (Auto) Twiggs % (Auto) Eos % (Auto) Baso % (Auto) Lymph # (Auto) Twiggs # (Auto) Eos # (Auto) Baso # (Auto) Abs Immat Gran (auto) Absolute Neuts (auto) Absolute Nucleated RBC Nucleated RBC % (auto) Sodium Potassium Chloride Carbon Dioxide Anion Gap BUN Creatinine Estim Creat Clear Calc Estimated GFR Random Glucose Fasting Glucose Calcium Iron TIBC % Saturation Unsat Iron Binding Total Bilirubin AST ALT Alkaline Phosphatase Total Protein Albumin Triglycerides Cholesterol LDL Cholesterol, Calc HDL Cholesterol Vitamin B12 438 Folate 9.4 TSH Free T4 Ethyl Alcohol COVID-19 ([facility]IL) COVID-19 Clin Com Mental Status Exam Mental Status Exam Patient Appearance: Well Grooomed and Appropriate Level of Consciousness: Awake and Appropriate Patient Behavior: Talkative Mood Description: Expansive Speech Pattern: Excessive and Pressured Thought Process: Linear Thought Content: positive for Circumstantial Judgement: Fair Medications Medications Current Medications Acetaminophen (Acetaminophen 325 Mg Tablet) 650 mg PO Q6H PRN PRN Reason: Headache/Pain Mild Scale (1-3) Last Admin: 06/20/22 14:26 Dose: 650 mg Al Hydroxide/Mg Hydroxide (Magnesium Hydrox/Alum Hydrox 30 Ml Oral.Susp) 30 ml PO Q6H PRN PRN Reason: Heartburn/Nausea Bacitracin (Bacitracin Oint 0.9 Gm Packet) 1 appl TOPICAL BID [facility]; Protocol Last Admin: 06/21/22 09:11 Dose: Not Given Baclofen (Baclofen 10 Mg Tablet) 10 mg PO TID [facility] Last Admin: 06/21/22 15:50 Dose: 10 mg Clonidine HCl (Clonidine Hcl 0.1 Mg Tablet) 0.1 mg PO TID PRN; Protocol PRN Reason: opioid withdrawal Last Admin: 06/21/22 03:41 Dose: 0.1 mg Famotidine (Famotidine 20 Mg Tablet) 20 mg PO BID [facility] Last Admin: 06/21/22 08:08 Dose: 20 mg Hydroxyzine HCl (Hydroxyzine Hcl 25 Mg Tablet) 25 mg PO Q6H PRN PRN Reason: Anxiety Last Admin: 06/21/22 08:14 Dose: 25 mg Loperamide HCl (Loperamide Hcl 2 Mg Capsule) 2 mg PO Q4H PRN PRN Reason: loose stools Last Admin: 06/20/22 10:16 Dose: 2 mg Magnesium Hydroxide (Milk Of Magnesia 30 Ml Oral.Susp) 30 ml PO DAILY PRN PRN Reason: Constipation Nicotine (Nicotine 21 Mg Patch.Td24) 21 mg TRANSDERMA DAILY [facility] Last Admin: 06/21/22 09:11 Dose: Not Given Nicotine Polacrilex (Nicotine Polacrilex 2 Mg Gum) 2 mg BUCCAL ONCE PRN PRN Reason: Nicotine Cravings Last Admin: 06/21/22 13:34 Dose: 2 mg Nicotine Polacrilex (Nicotine Polacrilex 2 Mg Gum) 2 mg BUCCAL Q2H PRN PRN Reason: Nicotine Cravings Last Admin: 06/21/22 15:50 Dose: 2 mg Trazodone HCl (Trazodone Hcl 50 Mg Tablet) 50 mg PO BEDTIME PRN PRN Reason: Insomnia Last Admin: 06/20/22 21:30 Dose: 50 mg Allergies Allergies Allergy/AdvReac Type Severity Reaction Status Date / Time No Known Allergies Allergy Unverified 02/11/20 17:43 [No Known Allergies*] Assessment & Plan Assessment & Plan (1) Opioid use disorder, moderate, dependence: Status: Acute Code(s): F11.20 - Opioid dependence, uncomplicated Assessment and Plan: continue suboxone 2mg QD has appt with outpatient provider soon no additional follow up at this time--please reconsult if needed Total time managing care of this patient today _50___ minutes. PMFSH Social History Social History Household Members: None Housing: Apartment Do you presently have visiting nurse or other home services: No Patient Tobacco Use Status: Former Tobacco user Tobacco use type: Cigarette Smoked in Last 30 Days: No Patient Interested in Nicotine Replacement: Yes Patient Given Instructions on How to Stop Smoking: No Use of substances other than those prescribed or required for medical reasons: Yes Substance Use Type: Crack/Cocaine, Marijuana and Opiates Substance Use Frequency: Recent Binge Last Used Substance: Days (ago) Currently Displaying Signs/Symptoms of Drug Intoxication Withdrawal: No Any prior treatment program specific to substance use: Yes Have you been hit, kicked, punched, or otherwise hurt by someone within the past year? If so, by whom?: No Do you feel safe in your current relationship?: Yes Is there a partner from a previous relationship who is making you feel unsafe now?: No Are you made to feel afraid or neglected: No Spiritual Healthcare Practices: None Yarsanism Healthcare Practices: None Cultural Healthcare Practices: None Advance Directives: No Advance Directives Information Provided: No Do you have thoughts of harming others: None Do you have a plan to hurt others: No Plan Recently lost weight without trying: Yes How much weight loss: 14-23 pounds Eating poorly because of decreased appetite: Yes Nutrition screen score: 5 Nutrition Risks: No Nutritional Risk Poor oral hygiene: No service: No Sexual orientation: Straight/Heterosexual
[2022-06-21] MEDS: LORazepam 1 MG TABLET PO (17:33)
[2022-06-21 18:00] VITALS: BP 128/80; PULSE 70; RESP 18; TEMP 36.8; O2SAT 98
[2022-06-21] MEDS: traZODone HCL 50 MG TABLET PO (20:55)
--- NOTE | 2022-06-22 05:45 | PC.NURSE ---
CIWA-not performed. patient sleeping soundly. respirations even and in no distress
[2022-06-22] MEDS: hydrOXYzine HCL 25 MG TABLET PO (06:43)
[2022-06-22] MEDS: Buprenorphine/Naloxone 2/0.5mg FILM 1 FILM SUBLINGUAL (08:11)
[2022-06-22] MEDS: Famotidine 20 MG TABLET PO ×2 (08:11→20:41)
[2022-06-22] MEDS: Baclofen 10 MG TABLET PO ×3 (08:11→20:41)
[2022-06-22 09:00] VITALS: BP 138/88; PULSE 77; RESP 16; TEMP 36.1; O2SAT 97
[2022-06-22] MEDS: Nicotine Polacrilex 2 MG GUM BUCCAL ×5 (10:10→20:44)
[2022-06-22] MEDS: Ferrous Sulfate 324 MG TABLET.DR 325 MG PO (11:49)
[2022-06-22] MEDS: LORazepam 1 MG TABLET 2 MG PO ×2 (11:51→17:19)
--- NOTE | 2022-06-22 13:30 | HO.PSYCHPN ---
Subjective Subjective Date of Service: 06/22/22 Reason For Visit: SI Subjective Notes: Conditional Voluntary Interim History: Pt with periods of restlessness, agitation easily frustrated. He is conflicted about staying and getting treatment and leaving. Pt also expressed fear of losing what he worked for so hard for the past 3 years. No SI/HI. No psychosis or delusions. Agree to scheduled propanolol which appear to have helped with restless, tapping feet, pacing, add trileptal. continue suboxone. Review of Systems Review of Systems Pt denies chest pain, visual changes. No hx of seizures. Pt reports opioid withdrawal symptoms including GI discomfort, muscle aches, anxious mood, running nose. Yes all other systems are reviewed and are negative Constitutional: Reports as per [facility] Mental Status Exam Mental Status Exam Narrative: Appearance: wearing casual clothing, fair hygiene, in NAD Behavior: cooperative Speech: clear, normal rate/rhythm/volume, spontaneous Psychomotor: no agitation or retardation noted TP: linear TC: no overt psychosis, feeling unwell physically due to opioid withdrawal Mood: anxious Affect: uncomfortable physically due to opioid withdrawal SI: denies HI: denies AH/VH: denies Delusions: none Insight/judgment: fair x 2. Memory/cog: alert, oriented x 3. grossly intact to conversational testing. Diagnostics Vital Signs (24Hr): Vital Signs - 24 hr 06/22/22 15:56 06/22/22 20:46 Temperature 97.8 F Pulse Rate 65 78 Blood Pressure 129/73 134/73 Pulse Oximetry 99 Oxygen Delivery Method Room Air BMI result Body Mass Index 20.0 Labs 06/19/22 16:44 06/20/22 08:33 Medications Medications Current Medications Acetaminophen (Acetaminophen 325 Mg Tablet) 650 mg PO Q6H PRN PRN Reason: Headache/Pain Mild Scale (1-3) Last Admin: 06/20/22 14:26 Dose: 650 mg Al Hydroxide/Mg Hydroxide (Magnesium Hydrox/Alum Hydrox 30 Ml Oral.Susp) 30 ml PO Q6H PRN PRN Reason: Heartburn/Nausea Bacitracin (Bacitracin Oint 0.9 Gm Packet) 1 appl TOPICAL BID [facility]; Protocol Last Admin: 06/23/22 08:23 Dose: 1 appl Baclofen (Baclofen 10 Mg Tablet) 10 mg PO TID [facility] Last Admin: 06/23/22 08:22 Dose: 10 mg Buprenorphine/Naloxone (Buprenorphine/Naloxone 2/0.5mg Film) 1 film SUBLINGUAL DAILY [facility] Last Admin: 06/23/22 08:22 Dose: 1 film Clonidine HCl (Clonidine Hcl 0.1 Mg Tablet) 0.1 mg PO TID PRN; Protocol PRN Reason: Anxiety Last Admin: 06/22/22 21:38 Dose: 0.1 mg Famotidine (Famotidine 20 Mg Tablet) 20 mg PO BID [facility] Last Admin: 06/23/22 08:23 Dose: 20 mg Ferrous Sulfate (Ferrous Sulfate 324 Mg Tablet.Dr) 324 mg PO DAILY [facility] Last Admin: 06/23/22 08:23 Dose: 324 mg Hydroxyzine HCl (Hydroxyzine Hcl 50 Mg Tablet) 50 mg PO Q4H PRN PRN Reason: Anxiety Last Admin: 06/22/22 20:40 Dose: 50 mg Loperamide HCl (Loperamide Hcl 2 Mg Capsule) 2 mg PO Q4H PRN PRN Reason: loose stools Last Admin: 06/20/22 10:16 Dose: 2 mg Lorazepam (Lorazepam 1 Mg Tablet) 1 mg PO BID PRN PRN Reason: severe anxiety Last Admin: 06/22/22 20:40 Dose: 1 mg Magnesium Hydroxide (Milk Of Magnesia 30 Ml Oral.Susp) 30 ml PO DAILY PRN PRN Reason: Constipation Nicotine (Nicotine 21 Mg Patch.Td24) 21 mg TRANSDERMA DAILY [facility] Last Admin: 06/23/22 08:26 Dose: Not Given Nicotine Polacrilex (Nicotine Polacrilex 2 Mg Gum) 2 mg BUCCAL ONCE PRN PRN Reason: Nicotine Cravings Last Admin: 06/22/22 13:48 Dose: 2 mg Nicotine Polacrilex (Nicotine Polacrilex 2 Mg Gum) 2 mg BUCCAL Q1H PRN PRN Reason: Nicotine Cravings Last Admin: 06/23/22 08:51 Dose: 2 mg Oxcarbazepine (Oxcarbazepine 150 Mg Tablet) 450 mg PO BID [facility] Last Admin: 06/23/22 08:22 Dose: 450 mg Propranolol HCl (Propranolol Hcl 20 Mg Tablet) 20 mg PO TID [facility]; Protocol Last Admin: 06/23/22 08:23 Dose: 20 mg Trazodone HCl (Trazodone Hcl 50 Mg Tablet) 50 mg PO BEDTIME PRN PRN Reason: Insomnia Last Admin: 06/22/22 21:38 Dose: 50 mg Allergies Allergies Allergy/AdvReac Type Severity Reaction Status Date / Time No Known Allergies Allergy Unverified 02/11/20 17:43 [No Known Allergies*] Assessment & Plan Assessment & Plan (1) MDD (major depressive disorder), recurrent episode, moderate: Status: Acute Code(s): F33.1 - Major depressive disorder, recurrent, moderate (2) Opioid use disorder, moderate, dependence: Status: Acute Code(s): F11.20 - Opioid dependence, uncomplicated Assessment and Plan: continue suboxone 2mg QD has appt with outpatient provider soon no additional follow up at this time--please reconsult if needed (3) Cocaine use disorder, moderate, dependence: Status: Acute Code(s): F14.20 - Cocaine dependence, uncomplicated Plan PLAN 06/21- continue current medications. 06/22 start propanolol 20mg po TID, trileptal 450mg po BID, prn ativan, atarax, seroquel and clonidine Reason for contiued inpatient stay Substantial Risk for: harm to self Time Spent With Patient Time: Total time managing care of this patient today ____ minutes.
[2022-06-22] MEDS: Propranolol HCL 20 MG TABLET PO ×2 (14:29→20:41)
[2022-06-22 15:56] VITALS: BP 129/73; PULSE 65
[2022-06-22] MEDS: cloNIDine HCL 0.1 MG TABLET PO ×2 (15:59→21:38)
[2022-06-22] MEDS: LORazepam 1 MG TABLET PO (20:40)
[2022-06-22] MEDS: hydrOXYzine HCL 50 MG TABLET PO (20:40)
[2022-06-22] MEDS: traZODone HCL 50 MG TABLET PO ×2 (20:41→21:38)
[2022-06-22] MEDS: OXcarbazepine 150 MG TABLET 450 MG PO (20:41)
[2022-06-22 20:46] VITALS: BP 134/73; PULSE 78; TEMP 36.6; O2SAT 99
--- NOTE | 2022-06-22 21:12 | PC.NURSE ---
''you are a piece of shit''-this was patients response when patient asking to leave in the context of asking to leave as his '''s mother is in an ER dying'' unable to verify this. /girlfriend is not answering the phone.escalating quickly. attempting to push at doors. will notify provider.
--- NOTE | 2022-06-23 01:55 | PC.NURSE ---
girlfriend called unit-asked for staff to leave a note for the patient (he was asleep) that everything was ok. note left for patient.
--- NOTE | 2022-06-23 04:28 | PC.NURSE ---
3 day notice placed on patients behalf as he was requesting immediate discharge UP 06/27
[2022-06-23 08:20] VITALS: BP 116/61; PULSE 72; RESP 16; TEMP 36.6; O2SAT 98
[2022-06-23] MEDS: OXcarbazepine 150 MG TABLET 450 MG PO ×2 (08:22→21:43)
[2022-06-23] MEDS: Baclofen 10 MG TABLET PO ×3 (08:22→21:44)
[2022-06-23] MEDS: Buprenorphine/Naloxone 2/0.5mg FILM 1 FILM SUBLINGUAL (08:22)
[2022-06-23] MEDS: Famotidine 20 MG TABLET PO ×2 (08:23→21:43)
[2022-06-23] MEDS: Ferrous Sulfate 324 MG TABLET.DR PO (08:23)
[2022-06-23] MEDS: Bacitracin Oint 0.9 GM PACKET 1 APPL TOPICAL ×2 (08:23→21:44)
[2022-06-23] MEDS: Propranolol HCL 20 MG TABLET PO ×3 (08:23→21:43)
[2022-06-23] MEDS: Nicotine Polacrilex 2 MG GUM BUCCAL ×7 (08:51→21:50)
[2022-06-23] MEDS: LORazepam 1 MG TABLET PO ×2 (11:30→20:11)
--- NOTE | 2022-06-23 12:34 | HO.PSYCHPN ---
Subjective Subjective Date of Service: 06/23/22 Reason For Visit: SI Subjective Notes: Conditional Voluntary and 3 Day Interim History: The nursing staff reported that yesterday he had a verbal altercation over the phone and he demanded to be discharged as soon as possible since his [id number] is in the hospital. Security needed to be called and he was deescalated. Later on he did several angry phone calls. Today in the morning he has behavior was much better he is in a 3 day notice. On interview the patient denies new symptoms he states that he is very anxious and he agreed to do some medication changes due to his recent thoughts. Mental Status Exam Mental Status Exam Patient Appearance: Well Grooomed Patient Orientation: Person and Situation Level of Consciousness: Awake and Appropriate Patient Behavior: Guarded and Passive Mood Description: Calm and Constricted Affect Description: Labile Patient Cognition Impaired: No Ability to Follow Directions: Good Speech Pattern: Clear Hallucinations: None Delusions: Not Present Thought Process: Linear Thought Content: positive for Dell and positive for Circumstantial Judgement: Fair Diagnostics Vital Signs (24Hr): Vital Signs - 24 hr 06/22/22 15:56 06/22/22 20:46 06/23/22 08:20 Temperature 97.8 F 97.9 F Pulse Rate 65 78 72 Respiratory Rate 16 Blood Pressure 129/73 134/73 116/61 Pulse Oximetry 99 98 Oxygen Delivery Method Room Air Room Air BMI result Body Mass Index 20.0 Labs 06/19/22 16:44 06/20/22 08:33 Medications Medications Current Medications Acetaminophen (Acetaminophen 325 Mg Tablet) 650 mg PO Q6H PRN PRN Reason: Headache/Pain Mild Scale (1-3) Last Admin: 06/20/22 14:26 Dose: 650 mg Al Hydroxide/Mg Hydroxide (Magnesium Hydrox/Alum Hydrox 30 Ml Oral.Susp) 30 ml PO Q6H PRN PRN Reason: Heartburn/Nausea Bacitracin (Bacitracin Oint 0.9 Gm Packet) 1 appl TOPICAL BID [facility]; Protocol Last Admin: 06/23/22 08:23 Dose: 1 appl Baclofen (Baclofen 10 Mg Tablet) 10 mg PO TID [facility] Last Admin: 06/23/22 08:22 Dose: 10 mg Buprenorphine/Naloxone (Buprenorphine/Naloxone 2/0.5mg Film) 1 film SUBLINGUAL DAILY [facility] Last Admin: 06/23/22 08:22 Dose: 1 film Clonidine HCl (Clonidine Hcl 0.1 Mg Tablet) 0.1 mg PO TID PRN; Protocol PRN Reason: Anxiety Last Admin: 06/22/22 21:38 Dose: 0.1 mg Famotidine (Famotidine 20 Mg Tablet) 20 mg PO BID [facility] Last Admin: 06/23/22 08:23 Dose: 20 mg Ferrous Sulfate (Ferrous Sulfate 324 Mg Tablet.Dr) 324 mg PO DAILY [facility] Last Admin: 06/23/22 08:23 Dose: 324 mg Hydroxyzine HCl (Hydroxyzine Hcl 50 Mg Tablet) 50 mg PO Q4H PRN PRN Reason: Anxiety Last Admin: 06/22/22 20:40 Dose: 50 mg Loperamide HCl (Loperamide Hcl 2 Mg Capsule) 2 mg PO Q4H PRN PRN Reason: loose stools Last Admin: 06/20/22 10:16 Dose: 2 mg Lorazepam (Lorazepam 1 Mg Tablet) 1 mg PO BID PRN PRN Reason: severe anxiety Last Admin: 06/23/22 11:30 Dose: 1 mg Magnesium Hydroxide (Milk Of Magnesia 30 Ml Oral.Susp) 30 ml PO DAILY PRN PRN Reason: Constipation Nicotine (Nicotine 21 Mg Patch.Td24) 21 mg TRANSDERMA DAILY [facility] Last Admin: 06/23/22 08:26 Dose: Not Given Nicotine Polacrilex (Nicotine Polacrilex 2 Mg Gum) 2 mg BUCCAL ONCE PRN PRN Reason: Nicotine Cravings Last Admin: 06/22/22 13:48 Dose: 2 mg Nicotine Polacrilex (Nicotine Polacrilex 2 Mg Gum) 2 mg BUCCAL Q1H PRN PRN Reason: Nicotine Cravings Last Admin: 06/23/22 11:30 Dose: 2 mg Oxcarbazepine (Oxcarbazepine 150 Mg Tablet) 450 mg PO BID [facility] Last Admin: 06/23/22 08:22 Dose: 450 mg Propranolol HCl (Propranolol Hcl 20 Mg Tablet) 20 mg PO TID [facility]; Protocol Last Admin: 06/23/22 08:23 Dose: 20 mg Trazodone HCl (Trazodone Hcl 50 Mg Tablet) 50 mg PO BEDTIME PRN PRN Reason: Insomnia Last Admin: 06/22/22 21:38 Dose: 50 mg Allergies Allergies Allergy/AdvReac Type Severity Reaction Status Date / Time No Known Allergies Allergy Unverified 02/11/20 17:43 [No Known Allergies*] Assessment & Plan Assessment & Plan (1) MDD (major depressive disorder), recurrent episode, moderate: Status: Acute Code(s): F33.1 - Major depressive disorder, recurrent, moderate (2) Opioid use disorder, moderate, dependence: Status: Acute Code(s): F11.20 - Opioid dependence, uncomplicated Assessment and Plan: continue suboxone 2mg QD has appt with outpatient provider soon no additional follow up at this time--please reconsult if needed (3) Cocaine use disorder, moderate, dependence: Status: Acute Code(s): F14.20 - Cocaine dependence, uncomplicated Plan PLAN 06/21- continue current medications. 06/22 start propanolol 20mg po TID, trileptal 450mg po BID, prn ativan, atarax, seroquel and clonidine 06/23 start a low dose of Seroquel 25 mg po tid to target racing thoughts and mood lability. Patient educated on: diagnosis Informed Consent: understands Reason for contiued inpatient stay Substantial Risk for: inability to function, rapid decompensation and med/psych decompensation Time Spent With Patient Time: Total time managing care of this patient today _20___ minutes.
[2022-06-23 13:40] VITALS: BP 129/76; PULSE 58
[2022-06-23] MEDS: cloNIDine HCL 0.1 MG TABLET PO ×3 (13:42→23:00)
[2022-06-23] MEDS: hydrOXYzine HCL 50 MG TABLET PO ×3 (13:43→23:00)
[2022-06-23 14:25] VITALS: BP 100/64; PULSE 68
[2022-06-23] MEDS: QUEtiapine Fumarate 25 MG TABLET PO ×2 (14:26→21:44)
[2022-06-23 17:40] VITALS: BP 130/87; PULSE 60
[2022-06-23] MEDS: traZODone HCL 50 MG TABLET PO ×2 (21:43→23:00)
[2022-06-23 21:47] VITALS: BP 120/73; PULSE 100; TEMP 36.6; O2SAT 100
[2022-06-23 23:02] VITALS: BP 116/72; PULSE 76
[2022-06-24 08:23] VITALS: BP 126/76; PULSE 60; RESP 16; TEMP 36.6; O2SAT 100
[2022-06-24] MEDS: Buprenorphine/Naloxone 2/0.5mg FILM 1 FILM SUBLINGUAL (08:40)
[2022-06-24] MEDS: OXcarbazepine 150 MG TABLET 450 MG PO ×2 (08:41→20:25)
[2022-06-24] MEDS: Ferrous Sulfate 324 MG TABLET.DR PO (08:41)
[2022-06-24] MEDS: Baclofen 10 MG TABLET PO ×3 (08:41→20:25)
[2022-06-24] MEDS: Famotidine 20 MG TABLET PO ×2 (08:41→20:25)
[2022-06-24] MEDS: Propranolol HCL 20 MG TABLET PO ×3 (08:41→20:25)
[2022-06-24] MEDS: QUEtiapine Fumarate 25 MG TABLET PO ×3 (08:41→20:25)
[2022-06-24] MEDS: Nicotine Polacrilex 2 MG GUM BUCCAL ×6 (10:53→20:28)
--- NOTE | 2022-06-24 12:07 | HO.PSYCHPN ---
Subjective Subjective Date of Service: 06/24/22 Reason For Visit: SI Interim History: The nursing staff reported the patient had a below art occasion with a very disorganized peer. Yesterday his sister visited him and he was irritable with staff. On interview the patient denies new symptoms still with labile mood Mental Status Exam Mental Status Exam Patient Appearance: Appropriate Patient Orientation: Person, Place and Situation Level of Consciousness: Awake and Restless Patient Behavior: Appropriate, Guarded and Passive Mood Description: Withdrawn Affect Description: Constricted Patient Cognition Impaired: No Ability to Follow Directions: Good Speech Pattern: Clear Hallucinations: None Delusions: Not Present Thought Process: Distracted Thought Content: positive for Circumstantial Judgement: Fair Diagnostics Vital Signs (24Hr): Vital Signs - 24 hr 06/23/22 13:40 06/23/22 14:25 06/23/22 17:40 Temperature Pulse Rate 58 68 60 Respiratory Rate Blood Pressure 129/76 100/64 130/87 Pulse Oximetry Oxygen Delivery Method 06/23/22 21:47 06/23/22 23:02 06/24/22 08:23 Temperature 97.9 F 98 F Pulse Rate 100 76 60 Respiratory Rate 16 Blood Pressure 120/73 116/72 126/76 Pulse Oximetry 100 100 Oxygen Delivery Method Room Air Room Air BMI result Body Mass Index 20.0 Labs 06/19/22 16:44 06/20/22 08:33 Medications Medications Current Medications Acetaminophen (Acetaminophen 325 Mg Tablet) 650 mg PO Q6H PRN PRN Reason: Headache/Pain Mild Scale (1-3) Last Admin: 06/20/22 14:26 Dose: 650 mg Al Hydroxide/Mg Hydroxide (Magnesium Hydrox/Alum Hydrox 30 Ml Oral.Susp) 30 ml PO Q6H PRN PRN Reason: Heartburn/Nausea Bacitracin (Bacitracin Oint 0.9 Gm Packet) 1 appl TOPICAL BID VANESSA; Protocol Last Admin: 06/23/22 21:44 Dose: 1 appl Baclofen (Baclofen 10 Mg Tablet) 10 mg PO TID VANESSA Last Admin: 06/24/22 08:41 Dose: 10 mg Buprenorphine/Naloxone (Buprenorphine/Naloxone 2/0.5mg Film) 1 film SUBLINGUAL DAILY VANESSA Last Admin: 06/24/22 08:40 Dose: 1 film Clonidine HCl (Clonidine Hcl 0.1 Mg Tablet) 0.1 mg PO TID PRN; Protocol PRN Reason: Anxiety Last Admin: 06/23/22 23:00 Dose: 0.1 mg Famotidine (Famotidine 20 Mg Tablet) 20 mg PO BID [facility] Last Admin: 06/24/22 08:41 Dose: 20 mg Ferrous Sulfate (Ferrous Sulfate 324 Mg Tablet.Dr) 324 mg PO DAILY [facility] Last Admin: 06/24/22 08:41 Dose: 324 mg Hydroxyzine HCl (Hydroxyzine Hcl 50 Mg Tablet) 50 mg PO Q4H PRN PRN Reason: Anxiety Last Admin: 06/23/22 23:00 Dose: 50 mg Loperamide HCl (Loperamide Hcl 2 Mg Capsule) 2 mg PO Q4H PRN PRN Reason: loose stools Last Admin: 06/20/22 10:16 Dose: 2 mg Lorazepam (Lorazepam 1 Mg Tablet) 1 mg PO BID PRN PRN Reason: severe anxiety Last Admin: 06/23/22 20:11 Dose: 1 mg Magnesium Hydroxide (Milk Of Magnesia 30 Ml Oral.Susp) 30 ml PO DAILY PRN PRN Reason: Constipation Nicotine (Nicotine 21 Mg Patch.Td24) 21 mg TRANSDERMA DAILY [facility] Last Admin: 06/24/22 08:40 Dose: Not Given Nicotine Polacrilex (Nicotine Polacrilex 2 Mg Gum) 2 mg BUCCAL ONCE PRN PRN Reason: Nicotine Cravings Last Admin: 06/22/22 13:48 Dose: 2 mg Nicotine Polacrilex (Nicotine Polacrilex 2 Mg Gum) 2 mg BUCCAL Q1H PRN PRN Reason: Nicotine Cravings Last Admin: 06/24/22 10:53 Dose: 2 mg Oxcarbazepine (Oxcarbazepine 150 Mg Tablet) 450 mg PO BID [facility] Last Admin: 06/24/22 08:41 Dose: 450 mg Propranolol HCl (Propranolol Hcl 20 Mg Tablet) 20 mg PO TID [facility]; Protocol Last Admin: 06/24/22 08:41 Dose: 20 mg Quetiapine Fumarate (Quetiapine Fumarate 25 Mg Tablet) 25 mg PO TID [facility] Last Admin: 06/24/22 08:41 Dose: 25 mg Trazodone HCl (Trazodone Hcl 50 Mg Tablet) 50 mg PO BEDTIME PRN PRN Reason: Insomnia Last Admin: 06/23/22 23:00 Dose: 50 mg Allergies Allergies Allergy/AdvReac Type Severity Reaction Status Date / Time No Known Allergies Allergy Unverified 02/11/20 17:43 [No Known Allergies*] Assessment & Plan Assessment & Plan (1) MDD (major depressive disorder), recurrent episode, moderate: Status: Acute Code(s): F33.1 - Major depressive disorder, recurrent, moderate (2) Opioid use disorder, moderate, dependence: Status: Acute Code(s): F11.20 - Opioid dependence, uncomplicated Assessment and Plan: continue suboxone 2mg QD has appt with outpatient provider soon no additional follow up at this time--please reconsult if needed (3) Cocaine use disorder, moderate, dependence: Status: Acute Code(s): F14.20 - Cocaine dependence, uncomplicated Plan PLAN 06/21- continue current medications. 06/22 start propanolol 20mg po TID, trileptal 450mg po BID, prn ativan, atarax, seroquel and clonidine 06/23 start a low dose of Seroquel 25 mg po tid to target racing thoughts and mood lability. Reason for contiued inpatient stay Substantial Risk for: inability to function, rapid decompensation and med/psych decompensation Time Spent With Patient Time: Total time managing care of this patient today _20___ minutes.
[2022-06-24] MEDS: Bacitracin Oint 0.9 GM PACKET 1 APPL TOPICAL ×2 (12:35→20:25)
[2022-06-24] MEDS: LORazepam 1 MG TABLET PO ×2 (13:58→19:07)
[2022-06-24] MEDS: hydrOXYzine HCL 50 MG TABLET PO ×2 (13:58→20:25)
[2022-06-24 16:08] VITALS: BP 126/83; PULSE 64
[2022-06-24 20:10] VITALS: BP 124/73; PULSE 73; RESP 18; TEMP 36.3; O2SAT 99
[2022-06-24] MEDS: traZODone HCL 50 MG TABLET PO (20:25)
[2022-06-25] MEDS: LORazepam 1 MG TABLET PO ×2 (06:52→11:44)
[2022-06-25] MEDS: Nicotine Polacrilex 2 MG GUM BUCCAL (06:54)
[2022-06-25] MEDS: Baclofen 10 MG TABLET PO (08:40)
[2022-06-25] MEDS: Ferrous Sulfate 324 MG TABLET.DR PO (08:40)
[2022-06-25] MEDS: Buprenorphine/Naloxone 2/0.5mg FILM 1 FILM SUBLINGUAL (08:41)
[2022-06-25] MEDS: Bacitracin Oint 0.9 GM PACKET 1 APPL TOPICAL (08:41)
[2022-06-25] MEDS: Propranolol HCL 20 MG TABLET PO (08:41)
[2022-06-25] MEDS: Famotidine 20 MG TABLET PO (08:41)
[2022-06-25] MEDS: OXcarbazepine 150 MG TABLET 450 MG PO (08:41)
[2022-06-25] MEDS: QUEtiapine Fumarate 25 MG TABLET PO (08:41)
[2022-06-25 09:45] VITALS: BP 132/77; PULSE 61; TEMP 36.2; O2SAT 97
--- NOTE | 2022-06-25 10:48 | P.DS_ITS ---
DS: Providers Provider Date of Service: 06/25/22 Date of admission: 06/19/22 21:18 Primary care physician: Unknown Physician Consults: 06/21/22 11:07 Addiction Medicine Routine Consulting Provider: Addiction Covering Reason for consultation: hesitant about continuing suboxone Has provider been notified: Yes DS: Diagnosis Discharge Diagnosis (1) MDD (major depressive disorder), recurrent episode, moderate: Status: Acute (2) Opioid use disorder, moderate, dependence: Status: Acute (3) Cocaine use disorder, moderate, dependence: Status: Acute DS: Medications Discharge Medications Home Medications: Previous Rx's Medication Instructions Recorded buprenorphine 2 mg-naloxone 0.5 mg 1 film sublingual DAILY #7 ea 06/25/22 sublingual film (Suboxone) clonidine HCl 0.1 mg tablet 0.1 mg PO TID PRN Anxiety #90 tabs 06/25/22 ferrous sulfate 324 mg (65 mg 324 mg PO DAILY #30 tabs 06/25/22 iron) tablet,delayed release hydroxyzine HCl 50 mg tablet 50 mg PO Q4H PRN Anxiety #90 tabs 06/25/22 oxcarbazepine 300 mg tablet 300 mg PO BID #60 tabs 06/25/22 propranolol 20 mg tablet 20 mg PO TID #90 tabs 06/25/22 quetiapine 25 mg tablet 25 mg PO TID #90 tabs 06/25/22 trazodone 50 mg tablet 50 mg PO BEDTIME PRN Insomnia #30 06/25/22 tabs Mental Status Exam Mental Status Exam Narrative: Appearance: wearing casual clothing, fair hygiene, in NAD Behavior: cooperative Speech: clear, normal rate/rhythm/volume, spontaneous Psychomotor: no agitation or retardation noted TP: linear TC: no overt psychosis, wanting to leave soon Mood: better Affect: dysphoric SI: denies HI: denies AH/VH: denies Delusions: none Insight/judgment: fair x 2. Memory/cog: alert, oriented x 3. grossly intact to conversational testing. Data Data Completed and Pending Completed studies during hospitalization [Text1]: 06/19/22 06/19/22 06/19/22 15:09 16:44 16:44 WBC 9.7 RBC 4.45 L Hgb 12.9 L Hct 37.9 L MCV 85.2 MCH 29.0 MCHC 34.0 RDW 12.6 Plt Count 264 MPV 9.2 L Immature Gran % (Auto) 0.3 Neut % (Auto) 67.5 Lymph % (Auto) 23.5 [place] % (Auto) 7.9 Eos % (Auto) 0.6 Baso % (Auto) 0.2 Lymph # (Auto) 2.3 [place] # (Auto) 0.8 Eos # (Auto) 0.1 Baso # (Auto) 0.0 Abs Immat Gran (auto) 0.03 Absolute Neuts (auto) 6.5 Absolute Nucleated RBC 0.000 Nucleated RBC % (auto) 0.0 Sodium 139 Potassium 4.4 Chloride 102 Carbon Dioxide 28 Anion Gap 13 BUN 13 Creatinine 0.84 Estim Creat Clear Calc 122.3 Estimated GFR > 60 Random Glucose 77 Fasting Glucose Calcium 9.4 Iron TIBC % Saturation Unsat Iron Binding Total Bilirubin AST ALT Alkaline Phosphatase Total Protein Albumin Triglycerides Cholesterol LDL Cholesterol, Calc HDL Cholesterol Vitamin B12 Folate TSH Free T4 Urine Opiates Screen POSITIVE H Urine Fentanyl Screen POSITIVE H Ur Barbiturates Screen Not Detected Ur Phencyclidine Scrn Not Detected Ur Amphetamines Screen Not Detected U Benzodiazepines Scrn Not Detected Urine Cocaine Screen POSITIVE H U Marijuana (THC) Screen POSITIVE H Ethyl Alcohol COVID-19 ([facility]) COVID-19 Clin Com 06/19/22 06/19/22 06/20/22 16:44 16:44 08:33 WBC RBC Hgb Hct MCV MCH MCHC RDW Plt Count MPV Immature Gran % (Auto) Neut % (Auto) Lymph % (Auto) [place] % (Auto) Eos % (Auto) Baso % (Auto) Lymph # (Auto) [place] # (Auto) Eos # (Auto) Baso # (Auto) Abs Immat Gran (auto) Absolute Neuts (auto) Absolute Nucleated RBC Nucleated RBC % (auto) Sodium 139 Potassium 4.3 Chloride 104 Carbon Dioxide 27 Anion Gap 12 BUN 13 Creatinine 0.79 Estim Creat Clear Calc 130.1 Estimated GFR > 60 Random Glucose Fasting Glucose 118 H Calcium 9.2 Iron TIBC % Saturation Unsat Iron Binding Total Bilirubin 0.9 AST 32 ALT 32 Alkaline Phosphatase 54 Total Protein 6.5 Albumin 4.2 Triglycerides 45 Cholesterol 150 LDL Cholesterol, Calc 78 HDL Cholesterol 63 Vitamin B12 Folate TSH Free T4 Urine Opiates Screen Urine Fentanyl Screen Ur Barbiturates Screen Ur Phencyclidine Scrn Ur Amphetamines Screen U Benzodiazepines Scrn Urine Cocaine Screen U Marijuana (THC) Screen Ethyl Alcohol < 10 COVID-19 ([facility]) Negative COVID-19 Clin Com See Note 06/20/22 06/20/22 10:17 10:17 WBC RBC Hgb Hct MCV MCH MCHC RDW Plt Count MPV Immature Gran % (Auto) Neut % (Auto) Lymph % (Auto) [place] % (Auto) Eos % (Auto) Baso % (Auto) Lymph # (Auto) [place] # (Auto) Eos # (Auto) Baso # (Auto) Abs Immat Gran (auto) Absolute Neuts (auto) Absolute Nucleated RBC Nucleated RBC % (auto) Sodium Potassium Chloride Carbon Dioxide Anion Gap BUN Creatinine Estim Creat Clear Calc Estimated GFR Random Glucose Fasting Glucose Calcium Iron 39 L TIBC 255 % Saturation 15 Unsat Iron Binding 216 Total Bilirubin AST ALT Alkaline Phosphatase Total Protein Albumin Triglycerides Cholesterol LDL Cholesterol, Calc HDL Cholesterol Vitamin B12 438 Folate 9.4 TSH 0.16 L Free T4 1.01 Urine Opiates Screen Urine Fentanyl Screen Ur Barbiturates Screen Ur Phencyclidine Scrn Ur Amphetamines Screen U Benzodiazepines Scrn Urine Cocaine Screen U Marijuana (THC) Screen Ethyl Alcohol COVID-19 ([facility]) COVID-19 Clin Com DS: Summary Hospital Course Hospital Course: Subjective Notes: Romo Warning (given and shows understanding) and Conditional Voluntary Narrative: Mr. Carpenter is a 36 year-old male with hx of opioid use disorder in remission for 3 years and relapsed in April 2022. Pt reports he started suboxone 2 weeks ago. He self presented to [facility] reporting increase depression, suicidal ideation with plan to OD. Utox in the ED positive for cocaine, opioids and fentanyl. On the unit, pt reports he relapsed in April for unclear reasons. He is not able to identify trigger. He reports on Saturday he was told by his employer that he had missed some hrs at work. He reports he was upset and proceeded to binge on drugs. He reports he does not want to be on suboxone. 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 He reports he thinks he has ADHD and asks if he can receive prescription for vyvanse or adderall. Pt reports he was not not any medications during time he was sober for past 3 days. He denies VH/AH. No overt delusions noted or reported. Past Psychiatric History: Inpatient: several more than 3-4 years ago. OP: none Suicide attempt: none Medical Evaluation Reviewed: Yes HOSPITAL COURSE On the unit, pt was admitted on a CV and placed on 15 minutes checks for safety. Pt initially presented with opioid withdrawal symptoms. Pt was started on comfort medications and restarted on suboxone 2mg/0.5mg SL daily. Pt reported feeling anxious about relapsing and losing everything he worked for so hard for the past 3 years. Pt denied SI/HI/VH/AH. Pt presented very restless, at times hyperverbal. He had few episodes of easily frustrated and agitated. We discussed risks, benefits and alternative treatment options. Pt agreed to continue clonidine for anxiety. Propanolol was added which he reported fair effect for restlessness. He denied SI/HI throughout this admission. No signs of psychosis or delusions. He was started on trileptal as he presented as irritable, easily frustrated and hyperverbal. He reported he had been on depakote but felt too sedated. It is unclear if mood changes are related to recent substance use as pt reports that past 3 years when not using substances, his mood was fairly stable, not requiring any psych tx OP or inpt. Time spent discussing smoking cessation with patient: more than 10 minutes Status at Discharge Cognitive/behavioral status at discharge: Pt with somewhat restless affect. He denies SI/HI. No psychosis or delusions. Pt sleeping through the night. No signs of aggression towards self or others. Harm reduction- narcan given on discharge. Functional status at discharge: independent ambulation Overall status at discharge: patient is progressing back to baseline Time Spent with Patient Time attestation: Total time managing care of this patient today __30__ minutes. Time spent: Greater than 30 minutes Discharge Plan Discharge Anticipated Discharge Date/Time: 06/25/22 10:37 Patient Disposition: Home, Self-Care Discharge Diagnosis: Mood Disorder OPioid Use Disorder Cocaine Use Disorder Referrals: Reba Pang (therapy intake) [Other] - 06/29/22 2:00 pm (Telehealth appointment) Haily Buckley (psychiatrist) [Other] - 07/23/22 10:00 am (Telehealth appointment) Haily Buckley (psychiatrist) [Other] - 08/20/22 10:00 am (Telehealth appointment) [facility] ([facility] [Other] - 06/27/22 11:15 am (INTAKE APPOINTMENT -this appointment will be with aPtricia Kim regarding the Sublocade shot. ) [facility] [Provider Group] - 1 Week Discharge Medications: New clonidine HCl 0.1 mg Tablet 0.1 mg PO TID PRN (Reason: Anxiety) Qty: 90 0RF Protocol: Hold for SBP< HOLD for SBP < : 90 hydroxyzine HCl 50 mg Tablet 50 mg PO Q4H PRN (Reason: Anxiety) Qty: 90 0RF propranolol 20 mg Tablet 20 mg PO TID Qty: 90 0RF Protocol: Hold for SBP/HR < HOLD for SBP < : 90 HOLD for HR < : 60 ferrous sulfate 324 mg (65 mg iron) Tablet,Delayed Release (Dr/Ec) 324 mg PO DAILY Qty: 30 0RF buprenorphine-naloxone [Suboxone] 2-0.5 mg Film 1 film sublingual DAILY Qty: 7 0RF oxcarbazepine 300 mg tablet 300 mg PO BID Qty: 60 0RF quetiapine 25 mg Tablet 25 mg PO TID Qty: 90 0RF trazodone 50 mg Tablet 50 mg PO BEDTIME PRN (Reason: Insomnia) Qty: 30 0RF Discontinued nicotine (polacrilex) 2 mg gum 1 ea PO NEEDED Discharge Orders: Discharge Order (Routine); Ordered 06/25/22 Ordered By: Letitia Blackman Diet: Regular diet Activity on Discharge: As tolerated Stand Alone Forms: Patient Portal Discharge page, Community Support Care Plan Goals: 1. Maintain mood 2. No SI/HI 3. Harm reduction- narcan given on discharge Health Concerns: Follow up with PCP Plan of Treatment: 1. Take medications as prescribed. 2. Go to nearest ED or call 911 in event of emergency Assessment: Pt with brighter, somewhat anxious/restless. No SI/HI. No VH/AH. Pt sleeping through the night. No signs of aggression towards self or others. Narcan given on discharge.
[2022-06-25] MEDS: Naloxone HCl Nasal TAKE HOME 4 MG SPRAY NOSTRILALT (11:44)
== END 2022-06-25 12:00 | disposition home or self-care (01) | DRG 751 ==
LOC: HO.ED 18:16 → HO.PADLT16 21:23
PROVIDERS: Nurse Practitioner Family; Admitting Provider Psychiatry & Neurology Psychiatry; Emergency Provider Emergency Medicine; Visit Provider Social Worker
DX: F33.1 Major depressive disorder, recurrent, moderate (principal); R45.851 Suicidal ideations; F14.20 Cocaine dependence, uncomplicated; F11.20 Opioid dependence, uncomplicated; Z20.822 Contact with and (suspected) exposure to COVID-19; Z87.891 Personal history of nicotine dependence; Z79.899 Other long term (current) drug therapy
CPT/HCPCS: 36415; 80048; 80053; 80061; 80307; 82077; 82607; 82746; 83540; 84439; 84443; 85025; 87635; 93005; 99284

== ENCOUNTER → 2022-06-27 11:12 | Outpatient (BNVA) | payer MEDICAID, SELFPAY | PROVIDERS: PCP Internal Medicine; Visit Provider Nurse Practitioner Psychiatric/Mental Health | DX: Z51.81 Encounter for therapeutic drug level monitoring (principal); F11.20 Opioid dependence, uncomplicated | CPT/HCPCS: 80305; 99202; 99212 ==

== ENCOUNTER → 2022-07-04 15:27 | Outpatient (BNVA) | payer MEDICAID, SELFPAY | PROVIDERS: PCP Internal Medicine; Visit Provider Nurse Practitioner Psychiatric/Mental Health | DX: Z51.81 Encounter for therapeutic drug level monitoring (principal); F11.20 Opioid dependence, uncomplicated; F14.20 Cocaine dependence, uncomplicated; F33.1 Major depressive disorder, recurrent, moderate | CPT/HCPCS: 80305; 99212 ==

== ENCOUNTER → 2022-07-11 14:03 | Outpatient (BNVA) | payer OTHER, SELFPAY | PROVIDERS: PCP Internal Medicine; Visit Provider Nurse Practitioner Psychiatric/Mental Health | DX: F11.20 Opioid dependence, uncomplicated (principal); F14.20 Cocaine dependence, uncomplicated; F12.20 Cannabis dependence, uncomplicated; Z51.81 Encounter for therapeutic drug level monitoring; Z79.899 Other long term (current) drug therapy | CPT/HCPCS: 80305; 99212 ==

== ENCOUNTER 2022-07-20 10:15 | Outpatient (RCR) | payer OTHER, SELFPAY ==
[2022-07-09 11:40] VITALS: BP 120/61; PULSE 52; TEMP 37.1
[2022-07-09 11:44] VITALS: BMI 21.3
--- NOTE | 2022-07-09 12:15 | PC.ADMIT ---
Patient was referred as a step down to inpatient behavioral health treatment where he was admitted d/t increased depression with SI and a plan to overdose on heroin. Toxicology screen positive for Fentanyl, Cocaine, and Heroin. Patient stated he had been sober for 3.5 years however relapsed for 2 weeks recently. Last use in April 2022. Patient is currently taking Suboxone. Stated he relapsed d/t feelings of depression and d/t social reasons however did not elaborate. Patient stopped taking some of his discharge medications including d/t side effects reporting Oxcarbazapine was causing testicle pain and Quetiapine made him feel foggy. Also stated he did not get Propranolol or Ferrous sulfate from the pharmacy. Jessica Durbin NP is aware and medication changes where made. Patient is taking a leave of absence from work to work on his mental health. Unsure if he is going to go back to work at this point. Patient presented with depressed mood, anxious affect. Reports passive SI, having thoughts that others would be better off without him. Patient appeared distracted in his thoughts at times and noticeably fidgety.
--- NOTE | 2022-07-09 13:56 | HO.PS.ADMBH ---
[facility] Date of Service: 07/09/22 Chief Complaint: MDD,cocaine use,substance use Sources of Information: patient interviewed, chart reviewed and crisis/core team assessment reviewed HPI Medical Problems Affecting Mental Status: No Narrative: Patient is a 37-year-old single male, referred to [facility] as a step-down from inpatient level of care. Patient had been inpatient on [facility] M3 from 06/19/2022 through 06/25/2022, due to symptoms of increased depression, suicidal ideation with a plan to overdose. U tox in the ED was positive for cocaine, opioids and fentanyl. Patient has a history of opioid use disorder, had been in remission for 3 years, relapsed in April 2022. He was prescribed medications while inpatient, has since stopped taking them, except for hydroxyzine. Patient reports increased depression, including anhedonia, hopelessness, helplessness, poor sleep, poor appetite, poor concentration, passive SI at times without a plan or intent. Today he denies any thoughts of harm to self or others. Patient recently engaged in self-injurious behavior prior to hospitalization, by burning himself, does not remember doing this. He states he had been using substances early in the morning, but that this was 6 hours later. He reports he had prasad reported on his neck, arms and shoulders. Patient also reports some irritability, anxiety, paranoia at times. Speech up appeared rapid, pressured. He was prescribed multiple medications while inpatient, and was discharged with clonidine, hydroxyzine, Trileptal, propanolol, quetiapine, trazodone. Patient was recently started with low-dose Suboxone while inpatient, and has presented to [facility] for MAT. Patient reports he has trialed mood stabilizers in the past, willing to consider medications again at this time. States his goal for participating in program is ?to gain emotional awareness, coping skills ?. Past Psychiatric History: Inpatient: [facility], M3 06/19/22-05/3022, and several previous, more than 3-4 years ago. OP: none Suicide attempt: none Medication trials: Wellbutrin, Remeron, Prozac (decreased libido), lithium (thinks it helped), Adderall, Vyvanse, lorazepam, Trileptal (discomfort), clonidine, quetiapine. Providers: Andie Buckley MD ([place]) Therapist: Reba Dubon ([place]) Medical Evaluation Reviewed: Yes [facility] Family History: Family history of both mental health and substance use disorder. Paternal side history schizophrenia, maternal side history depression, drug and alcohol use. Social History: Lives with GF. Working. Raised by both parents, has 4 younger siblings. Prescribed Adderall for many years throughout school. Graduated high school, some college. Upcoming court date 08/30/2022 for disturbing the peace Substance History: cocaine: Since [age], last use 05/15/2022. Cannabis: Daily use. History unintentional overdoses, last 1 in 2016. Currently receives Suboxone from [facility]. Relapsed heroin and fentanyl April 2022. Trauma History: Denies Diagnostics Vital Signs (24Hr): Vital Signs - 24 hr 07/09/22 11:40 Temperature 98.7 F Pulse Rate 52 Blood Pressure 120/61 BMI result Body Mass Index 21.3 Meds/Allergies Meds Home Medications Medication Instructions Recorded Confirmed Type ferrous sulfate 324 mg (65 mg 324 mg PO DAILY 07/09/22 07/09/22 History iron) tablet,delayed release Allergies Allergies Allergy/AdvReac Type Severity Reaction Status Date / Time No Known Allergies Allergy Unverified 07/04/22 15:29 [No Known Allergies*] Mental Status Exam Mental Status Exam Narrative: Well-developed, well-nourished, NAD. Well groomed, wearing appropriate clothing. Behavior: Calm, cooperative with intake interview, asking appropriate questions. Psychomotor/musculoskeletal/gait: No slowing or agitation noted, gait normal. no cogwheeling or rigidity noted. Speech/language: Rapid, pressured. Mood: Depressed, but good Affect: nxious, slightly irritable. Thought process: Linear, goal directed. Associations: No loosening of associations noted. Thought content: Past psych history, past substance use history, goals of care. SI/HI: None. Perception/experiences: No AH/VH, some paranoia, no delusions noted. Orientation/sensorium: Alert and oriented x4. Memory: Able to recall recent and remote events without difficulty. Attention/concentration: Able to follow conversation without difficulty. Abstract reasoning: Grossly intact. Fund of knowledge: Adequate. Insight/judgment: Fair. Assessment & Plan Assessment & Plan (1) MDD (major depressive disorder), recurrent episode, moderate: Status: Acute Code(s): F33.1 - Major depressive disorder, recurrent, moderate Assessment and Plan: Patient is a 36-year-old male with history of opioid use disorder, recent SI with plan to OD. Denies any SI at this time, either active or passive. He had been hospitalized in May 2022. He had been referred to [facility], where he has received prescription for Suboxone low-dose. Patient reports he Has stopped medications except for hydroxyzine since discharge from hospital. Reports he has periods where he becomes depressed. Has history of taking medications in the past, with poor adherence. Appears hypomanic at times during interview. Does report history of Adderall during childhood. Unclear at this time if patient has an underlying bipolar mood disorder, or possibly ADD, or an agitated depression. Possibility also of substance induced or exacerbated mood disorder. He has a history of lithium in the past, with positive effect. Discussed trying low-dose at this time, he was in agreement. He reports currently poor sleep and appetite, as well as some depression. Discussed trialing mirtazapine, as it can help with sleep as well as address underlying depressive symptoms. Both medications discussed in detail, including indications, risks both serious and common, benefits, alternatives of treatment recommendations. He was in agreement to trial lithium and mirtazapine at this time. (2) Opioid use disorder, moderate, dependence: Status: Acute Code(s): F11.20 - Opioid dependence, uncomplicated Assessment and Plan: Patient reports he had been sober for 3 years, had a brief relapse in April 2022 with both fentanyl and heroin, cocaine. States he is currently sober. Denies any current withdrawals or cravings. Wants to learn healthy coping skills so that he does not have of another relapse. (3) Cocaine use disorder, moderate, dependence: Status: Acute Code(s): F14.20 - Cocaine dependence, uncomplicated Plan 1. Continue with current [facility] plan of care. 2. Start lithium 300 mg at bedtime. 3. Start mirtazapine 15 mg at bedtime. 4. Patient to continue with Suboxone, ferrous sulfate, hydroxyzine. 5. Follow-up as per protocol. Patient educated on: diagnosis, medication risk/benefits, substance abuse and therapeutic strategies Informed Consent: understands Reason for continued partial hosp. stay Substantial Risk for: harm to self, inability to function and rapid decompensation Certification I certify that partial hospital treatment is medically necessary due to the symptoms and problems resulting from the patient's mental illness and the failure to treat the patient at the partial hospital level of care would likely result in the patient requiring inpatient psychiatric care which could not be prevented at a less intensive level of care. Time Spent With Patient Time: Total time managing care of this patient today __60__ minutes.
[2022-07-10 14:40] LABS: Amphetamine Screen Urine Not Detected (Not Detect); Barbiturates, Urine Not Detected (Not Detect); Benzodiazepines Screen Urine Not Detected (Not Detect); Cannabinoid Screen Urine POSITIVE (Not Detect); Cocaine Screen Urine Not Detected (Not Detect); Fentanyl, urine Not Detected (Not Detect); Opiate Screen Urine Not Detected (Not Detect); Phencyclidine Screen Urine Not Detected (Not Detect)
--- NOTE | 2022-07-12 15:41 | HO.PHP ---
The client called out
--- NOTE | 2022-07-12 15:42 | HO.PHP ---
The clients case was discussed and opened in clinical team
--- NOTE | 2022-07-17 13:03 | HO.PHP ---
The client called out because he had difficulty sleeping last night. He states that he is safe and will be here tomorrow
--- NOTE | 2022-07-18 12:05 | P.PNPSP_ITS ---
Subjective Subjective Date of Service: 07/18/22 Reason For Visit: MDD,cocaine use,substance use Medical Problems Affecting Mental Status: No Interim History: Presents as angry/irritable. Describes mood as ?all right, having a difficult time ?. Poor sleep, difficulty staying focused. Did not take lithium, states he does not want to take mood stabilizers due to side effects. States ?I am not able to remain where I am ?. Has used cocaine several times, states he is not using every day. No SI, but states he feels ?hopeless ?. Medication Compliance: Intermittent Attending Groups: No Review of Systems Acute medical concerns: No Medical Review of Systems: unchanged Review of Systems Review of Systems Yes all other systems are reviewed and are negative Constitutional: Reports no additional constitutional complaints Mental Status Exam Mental Status Exam Narrative: NAD Behavior: Anger, irritable, confrontational. Psychomotor/musculoskeletal/gait: No slowing or agitation noted, gait normal. no cogwheeling or rigidity noted. Speech/language: Rapid, pressured. Mood: difficult time, hopeless Affect: Angry, irritable, hypomanic. Thought process: Linear, goal directed. Associations: No loosening of associations noted. Thought content: focused on medications, progress in PHP. SI/HI: None. Perception/experiences: No AH/VH, some paranoia, no delusions noted. Orientation/sensorium: Alert and oriented x4. Memory: Able to recall recent and remote events without difficulty. Attention/concentration: Able to follow conversation without difficulty. Abstract reasoning: fair Fund of knowledge: Adequate. Insight/judgment: Fair. Diagnostics Vital Signs (24Hr): BMI result Body Mass Index 21.3 Assessment & Plan Assessment & Plan (1) MDD (major depressive disorder), recurrent episode, moderate: Status: Acute Code(s): F33.1 - Major depressive disorder, recurrent, moderate Assessment and Plan: Patient continues with depression symptoms, reports that he feels hopeless. Denies SI, states that he feels safe. Did not take prescribed lithium, became upset, stating that this commercial insurance underwriter is trying to push medications on him without ev en researching them. States he is not interested in any mood stabilizers, atypical antipsychotics, or BuSpar. Appeared hypomanic, with rapid verbal speech, some paranoia. Reports he has also been using cocaine, states that he has used twice since he was in crisis. 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 Has been finding this difficult. Extremely irritable. Reports poor sleep, says he slept 4 hours last evening. Discussed current medications. He was at advised to try taking half dose of mirtazapine to improve sleep. Also encouraged to utilize p.r.n. hydroxyzine with the mirtazapine in order to help improve sleep. Patient was encouraged to go to this emergency department for a crisis eval. He refused. Was asked if he believes he would benefit from respite, he stated ?no . Asked for gabapentin. When this commercial insurance underwriter told him no, he became angry, stood up, left room. (2) Cocaine use disorder, moderate, dependence: Status: Acute Code(s): F14.20 - Cocaine dependence, uncomplicated (3) Opioid use disorder, moderate, dependence: Status: Acute Code(s): F11.20 - Opioid dependence, uncomplicated Plan 1. Continue with current [facility] plan of care. Patient is enrolled in substance use groups here. 2. Continue to monitor patient closely. 3. PHP team has been notified that patient may require higher level of care. Patient educated on: diagnosis, medication risk/benefits, substance abuse and therapeutic strategies Informed Consent: understands Reason for contiued partial hosp. stay Substantial Risk for: harm to self, harm to others, inability to function and rapid decompensation Certification I certify that partial hospital treatment is medically necessary due to the symptoms and problems resulting from the patient's mental illness and the failure to treat the patient at the partial hospital level of care would likely result in the patient requiring inpatient psychiatric care which could not be prevented at a less intensive level of care. Total time managing care of this patient today _25___ minutes. Discharge Plan Discharge Attending provider: Chuck Steele Medications: New mirtazapine 15 mg tablet 15 mg PO BEDTIME Qty: 14 0RF Discontinued clonidine HCl 0.1 mg Tablet 0.1 mg PO TID PRN (Reason: Anxiety) Qty: 90 0RF Protocol: Hold for SBP< HOLD for SBP < : 90 propranolol 20 mg Tablet 20 mg PO TID Qty: 90 0RF Protocol: Hold for SBP/HR < HOLD for SBP < : 90 HOLD for HR < : 60 ferrous sulfate 324 mg (65 mg iron) Tablet,Delayed Release (Dr/Ec) 324 mg PO DAILY Qty: 30 0RF oxcarbazepine 300 mg tablet 300 mg PO BID Qty: 60 0RF quetiapine 25 mg Tablet 25 mg PO TID Qty: 90 0RF trazodone 50 mg Tablet 50 mg PO BEDTIME PRN (Reason: Insomnia) Qty: 30 0RF No Action ferrous sulfate 324 mg (65 mg iron) Tablet,Delayed Release (Dr/Ec) 324 mg PO DAILY hydroxyzine HCl 50 mg Tablet 50 mg PO Q4H PRN (Reason: Anxiety) Qty: 90 0RF buprenorphine-naloxone [Suboxone] 2-0.5 mg film 1 film sublingual DAILY Qty: 14 0RF Rx Instructions: place 1 strip/tab under (each) side of tongue Stand Alone Forms: Patient Portal Discharge page Patient Education: [place] (By mouth), Mirtazapine (By mouth)
== END 2022-07-25 23:59 | disposition home or self-care (01) ==
LOC: HO.PHPA 10:15
PROVIDERS: Visit Provider Psychiatry & Neurology Psychiatry
DX: F33.1 Major depressive disorder, recurrent, moderate (principal); F11.20 Opioid dependence, uncomplicated; F14.20 Cocaine dependence, uncomplicated
CPT/HCPCS: 80307; 90791; 90853

== ENCOUNTER 2022-10-20 09:13 | Outpatient (REF) | payer OTHER, SELFPAY ==
[2022-10-20 09:30] LABS: MANUAL DIFF FLAG NO
[2022-10-20 10:12] LABS: Basophils Percent Auto 0.5 % (0-2); Eosinophils Absolute Auto 0.2 X10*3/uL (0.0-0.4); Eosinophils Percent Auto 2.5 % (0-4); Hematocrit 42.6 % (42.0-52.0); Hemoglobin 14.6 g/dl (14.0-18.0); Imm Gran Abs Auto 0.01 X10*3/uL (0.00-0.03); Imm Gran Pct Auto 0.1 % (0.0-0.4); Lymphocytes Absolute Auto 3.9 X10*3/uL (1.2-4.9); Lymphocytes Percent Auto 51.4 % (20-40); Mean Corpuscular HGB Conc 34.3 g/dl (31.0-36.0); Mean Corpuscular Hemoglobin 28.8 pg (27.0-33.0); Mean Platelet Volume 9.3 fL (9.4-12.4); Monocytes Absolute Auto 0.5 X10*3/uL (0.1-1.2); Monocytes Percent Auto 6.3 % (2-11); Neutrophils Percent Auto 39.2 % (45-73); Platelet Count 258 X10*3/uL (160-400); Red Blood Count 5.07 X10*6/uL (4.60-5.80); Red Cell Distribution Width 13.4 % (11.0-16.0); White Blood Count 7.6 X10*3/uL (4.8-10.8)
[2022-10-20 10:39] LABS: Alanine Aminotransferase 22 U/L (0-40); Albumin Level 4.4 g/dL (3.5-5.0); Alkaline Phosphatase 56 U/L (39-117); Anion Gap 11 (12-20); Aspartate Amino Transferase 20 U/L (5-37); Bilirubin Total 0.8 mg/dL (0.0-1.0); Blood Urea Nitrogen 14 mg/dL (9-16); Calcium 9.9 mg/dL (8.4-10.2); Carbon Dioxide 30 mmol/L (22-29); Chloride 105 mmol/L (96-108); Cholesterol 190 mg/dL; Estimated Glomerular Filt Rate > 60; Glucose Random 91 mg/dL (60-115); HDL Cholesterol 54 mg/dL; LDL Cholesterol Calculated 121 mg/dl; Potassium 4.5 mmol/L (3.3-5.1); Sodium 141 mmol/L (135-145); Total Protein 6.8 g/dL (6.5-8.0); Triglycerides 79 mg/dL
[2022-10-20 10:54] LABS: Thyroid Stimulating Hormone 0.86 uIU/mL (0.32-4.0)
[2022-10-23 12:34] LABS: HCV Log PCR <1.18 NOT DETECTED Log IU/mL (NOT DETECTED); HepC Viral Load <15 NOT DETECTED IU/mL (NOT DETECTED)
== END 2022-10-20 09:14 | disposition home or self-care (01) ==
LOC: HO.LAB 09:13
PROVIDERS: PCP Internal Medicine; Visit Provider Internal Medicine
DX: Z00.00 Encounter for general adult medical examination without abnormal findings (principal); B18.2 Chronic viral hepatitis C; L82.1 Other seborrheic keratosis; M25.511 Pain in right shoulder
CPT/HCPCS: 36415; 80053; 80061; 84443; 85025; 87522

== ENCOUNTER 2022-10-28 22:53 | Inpatient (IN) | payer OTHER, SELFPAY ==
--- NOTE | 2022-10-28 | ECG_ITS ---
Test Reason : OVERDOSE Blood Pressure : / mmHG Vent. Rate : 110 BPM Atrial Rate : 110 BPM P-R Int : 186 ms QRS Dur : 096 ms QT Int : 334 ms P-R-T Axes : 076 054 059 degrees QTc Int : 452 ms Sinus tachycardia Possible Left atrial enlargement Borderline ECG When compared with ECG of 19-JUN-2022 18:00, Vent. rate has increased BY 49 BPM Referred By: Generic ED Physician Electronically Signed By:Kelby El
--- NOTE | ~2022-10-28 | XR_ITS ---
EXAMINATION: XR CHEST CLINICAL INFORMATION: Chest pain. Shortness of breath. Overdose. COMPARISON: None available. TECHNIQUE: Frontal view of the chest was obtained. FINDINGS: Fullness is evident in the right perihilar region with partial obscuration of the vascular structures. No pneumothorax or pleural effusion. There is peribronchial thickening in the perihilar regions bilaterally. No acute osseous findings. Left convex thoracic scoliosis. XR/XR chest 1V IMPRESSION: Bronchial wall thickening can be seen with mild pulmonary edema or an airways process such as asthma or atypical/viral infection. Additional right perihilar/suprahilar opacification which could be due to alveolar edema, though consolidation from aspiration is also possible.
[2022-10-28 22:57] VITALS: BP 134/79; PULSE 123; O2SAT 99
[2022-10-28 23:15] VITALS: BP 105/64; PULSE 109; RESP 20; TEMP 36.6; O2SAT 90
[2022-10-28 23:17] VITALS: O2SAT 67; BMI 23.1
--- NOTE | 2022-10-28 23:23 | ED_ITS ---
HPI - General Adult General Chief complaint: Overdose Stated complaint: unresponsive narcan given Time Seen by Provider: 10/28/22 23:13 Source: patient, RN notes reviewed and old records reviewed Mode of arrival: ambulatory Limitations: no limitations History of Present Illness HPI narrative: 37-year-old male past medical history significant for major depressive disorder, cocaine use disorder, opioid use disorder presents for evaluation after a reported overdose. Patient was unresponsive on the floor. His girlfriend administered Narcan 4 mg nasally When PD arrived, they found the patient to be breathing actually and administered another 4 mg of Narcan nasally The patient admits to significant heroin today. He reports using cocaine last yesterday He complains of chest tightness mostly right-sided Of note, the patient's oxygen saturation on arrival is 90% on non-rebreather at 15 L Patient denies intentional overdose Related Data Home Medications Medication Instructions Recorded Confirmed ferrous sulfate 324 mg (65 mg 324 mg PO DAILY 07/09/22 07/09/22 iron) tablet,delayed release Previous Rx's Medication Instructions Recorded hydroxyzine HCl 50 mg tablet 50 mg PO Q4H PRN Anxiety #90 tabs 06/25/22 mirtazapine 15 mg tablet 15 mg PO BEDTIME #14 tabs 07/09/22 buprenorphine 2 mg-naloxone 0.5 mg 1 film sublingual DAILY #14 ea 07/11/22 sublingual film (Suboxone) Allergies Allergy/AdvReac Type Severity Reaction Status Date / Time No Known Allergies Allergy Unverified 07/11/22 14:21 [No Known Allergies*] Review of Systems Constitutional: Constitutional: Denies chills, Denies fever(s) and Denies headache(s) ENT: Denies headache(s) Cardiovascular: Cardiovascular: Reports chest pain and Reports dyspnea Respiratory: Respiratory: Denies cough and Reports dyspnea Gastrointestinal: Gastrointestinal: Denies abdominal pain, Denies nausea and Denies vomiting Musculoskeletal: Musculoskeletal: Denies back pain Integumentary/Breasts: Skin/Breast: Denies rash Neurologic: Denies headache(s) Psychiatric: Psychiatric: Denies suicidal ideation [facility] Social History Social History Household Members: Significant Other Housing: Apartment Do you presently have visiting nurse or other home services: No Patient Tobacco Use Status: Former Tobacco user Tobacco use type: Cigarette Use of substances other than those prescribed or required for medical reasons: Yes Substance Use Type: Crack/Cocaine and Heroin Last Used Substance: Just Prior to Admission Advance Directives: No Advance Directives Information Provided: No service: No Sexual orientation: Straight/Heterosexual Physical Exam ED Vital Signs: Vital Signs - 24 hr 10/28/22 23:15 10/28/22 23:17 10/29/22 00:10 Temperature 97.9 F Pulse Rate 109 H 96 Respiratory Rate 20 24 H Blood Pressure 105/64 97/61 Pulse Oximetry 90 L 67 L 100 Oxygen Delivery Method Non-Rebreather Mask Room Air Non-Rebreather Mask Oxygen Flow Rate 15 15 10/29/22 00:59 10/29/22 01:32 10/29/22 02:29 Temperature Pulse Rate 89 89 Respiratory Rate 13 17 17 Blood Pressure 105/87 112/55 L Pulse Oximetry 96 95 Oxygen Delivery Method Nasal Cannula Nasal Cannula Oxygen Flow Rate 6 6 10/29/22 02:47 10/29/22 03:46 10/29/22 04:13 Temperature Pulse Rate 82 73 75 Respiratory Rate 14 12 11 L Blood Pressure 79/43 L 83/47 L 85/50 L Pulse Oximetry 96 94 98 Oxygen Delivery Method BiPAP BiPAP BiPAP Oxygen Flow Rate 10/29/22 04:36 10/29/22 04:46 10/29/22 05:11 Temperature Pulse Rate 73 76 71 Respiratory Rate Blood Pressure 85/50 L 78/52 L 88/54 L Pulse Oximetry Oxygen Delivery Method Oxygen Flow Rate 10/29/22 05:17 10/29/22 05:35 10/29/22 06:32 Temperature Pulse Rate 73 66 Respiratory Rate 14 Blood Pressure 90/52 L 99/58 L 103/49 L Pulse Oximetry 96 Oxygen Delivery Method Nasal Cannula Oxygen Flow Rate 3.5 BMI result Body Mass Index 23.1 Const General: comfortable, no acute distress, alert and awake Orientation/consciousness: patient oriented x3 HENMT Head: Yes normocephalic and Yes atraumatic Eyes Eyelids: Yes eyelids normal Conjunctivae: conjunctivae normal Sclerae: sclerae normal Corneas: corneas normal Pupils: Equal, round and reactive pupils present EOM: EOMs intact bilaterally Neck Neck: Yes full ROM Chest Chest palpation & inspection: normal inspection of the chest and no crepitus Resp Other: Equal chest rise Effort & Inspection: normal respiratory effort, able to speak in complete sentences, no audible wheezes and not labored Auscultation: clear to auscultation bilaterally Cardio Rate: regular rate Rhythm: regular rhythm GI Inspection: No distended Palpation (GI): Soft to palpation, not firm, nontender, no guarding and not rigid Auscultation: normoactive bowel sounds Skin General skin exam: no rashes or lesions noted and elasticity normal Neuro General: patient oriented x3 Cranial nerves: Yes Equal, round and reactive pupils present and Yes Bilaterally intact EOM present Cognition (Neuro): normal cognition Extrem Other: Moving all extremities well without any obvious deformities Course Reevaluation(s) Reevaluation #1: Patient section saturation was maintaining at 100% on a non-rebreather, he was weaned down to nasal cannula 6 L and maintaining 92-93%. His VBG shows acidosis. X-ray shows concern for aspiration pneumonitis. He was treated with Zosyn and azithromycin. Blood cultures and lactic acid was drawn. I ordered 2 L of IV fluid. No evidence of severe sepsis at this time. There is no white count. Lactic acid is pending Time: 00:38 Reevaluation #2: Patient's oxygen status is improving, he is now maintaining approximately 96% on 6 L. however without supplemental oxygen he remained hypoxic. Discussed with my attending, Dr. Jackson who recommends giving Lovenox 1 milligram/kilogram, prophylactic dose as the patient's renal function would not allow for CT angiogram of the chest. Time: 01:11 Reevaluation #3: Repeat lactic acid is 5.1 patient meet criteria for septic shock, will receive 30 cc/kg IV fluid patient already received Zosyn will upgrade the admission to ICU. No ICU bed available in the facility today, [facility] is closed for transfer, [facility] accepted the patient to the ICU but patient refused to be t [place]ansferred out of state. Time: 03:23 Consultations Consultation #1: ICU bed is not available in our facility, patient is still on BiPAP I think he can be weaned off, blood pressure still borderline after IV fluid will start on Levophed, attempt to transfer the patient to [facility] which is closed for [facility] [place], another phone call was made to [facility] but patient adamantly refused to go to [facility]. After fluid administration patient's lactic acid is trending down to 2.4 Case signed out to Dr. Medley for final disposition. Time: 04:33 Medications Administered Generic Name Dose Route Start Last Admin Trade Name Freq PRN Reason Stop Dose Admin Norepinephrine Bitartrate 8 mg in 250 mls @ 0 mls/hr 10/29/22 04:45 10/29/22 05:17 Levophed IV 0.11 mcg/kg/min .Q0M VANESSA 16.37 mls/hr Titration Protocol Per Protocol Discontinued Medications Generic Name Dose Route Start Last Admin Trade Name Freq PRN Reason Stop Dose Admin Acetaminophen 975 mg 10/29/22 00:40 10/29/22 00:44 Acetaminophen 325 Mg Tablet PO 10/29/22 00:41 975 mg ONCE ONE Administration Enoxaparin Sodium 80 mg 10/29/22 01:10 10/29/22 03:44 Enoxaparin Sodium 80 Mg/0.8 Ml Syringe 1 mg/kg (80 mg) 10/29/22 01:11 80 mg SUBCUT Administration ONCE ONE Hydroxyzine HCl 25 mg 10/28/22 23:52 10/28/22 23:58 Hydroxyzine Hcl 25 Mg Tablet PO 10/28/22 23:53 25 mg ONCE ONE Administration Sodium Chloride 1,000 mls @ 999 mls/hr 10/28/22 23:45 10/29/22 01:08 Ns IV 10/29/22 00:45 Infused .Q1H1M VANESSA Infusion Piperacillin Sod/Tazobactam 50 mls @ 100 mls/hr 10/29/22 00:18 10/29/22 01:08 Sod 3.375 gm/ Sodium Chloride IV 10/29/22 00:47 Infused ONCE ONE Infusion Azithromycin 500 mg/ Sodium 250 mls @ 125 mls/hr 10/29/22 00:18 10/29/22 03:41 Chloride IV 10/29/22 02:17 Infused ONCE ONE Infusion Sodium Chloride 1,000 mls @ 999 mls/hr 10/29/22 00:30 10/29/22 02:31 Ns IV 10/29/22 01:30 Infused .Q1H1M VANESSA Infusion Lactated Ringer's 1,000 mls @ 999 mls/hr 10/29/22 03:00 10/29/22 03:39 Lr IV 10/29/22 04:00 Infused .Q1H1M VANESSA Infusion Sodium Chloride 2,381.37 mls @ 2,381.37 mls/hr 10/29/22 03:21 10/29/22 04:19 Ns 30 ml/kg infuse over 1 hr (2381.37 ml) 10/29/22 04:20 0 mls/hr IV Infusion .Q1H STA Lactated Ringer's 1,000 mls @ 999 mls/hr 10/29/22 04:45 10/29/22 06:28 Lr IV 10/29/22 05:45 Infused .Q1H1M VANESSA Infusion Medical Decision Making Medical Decision Making [facility] Narrative: Patient admits to opiate abuse today. He responded well to Narcan is awake, alert oriented but is still hypoxic complaint chest pain. EKG was done, check labs including troponin, the PG. Will get a portable chest x-ray to help evaluate for pneumothorax versus aspiration pneumonitis. Differential Diagnosis Chest pain Opiate overdose Pneumothorax Aspiration pneumonitis Pneumonia Cocaine abuse ACS Lab Data 10/28/22 23:22 10/28/22 23:22 Labs: Lab Results 10/28/22 10/28/22 10/28/22 Range/Units 23:22 23:22 23:22 WBC 8.9 (4.8-10.8) X10*3/uL RBC 5.20 (4.60-5.80) X10*6/uL Hgb 14.7 (14.0-18.0) g/dl Hct 45.4 (42.0-52.0) % MCV 87.3 (80.0-98.0) fL MCH 28.3 (27.0-33.0) pg MCHC 32.4 (31.0-36.0) g/dl RDW 13.9 (11.0-16.0) % Plt Count 310 (160-400) X10*3/uL MPV 8.9 L (9.4-12.4) fL Immature Gran % (Auto) 4.4 H (0.0-0.4) % Neut % (Auto) 78.1 H (45-73) % Lymph % (Auto) 11.7 L (20-40) % [place] % (Auto) 5.5 (2-11) % Eos % (Auto) 0.1 (0-4) % Baso % (Auto) 0.2 (0-2) % Lymph # (Auto) 1.0 L (1.2-4.9) X10*3/uL [place] # (Auto) 0.5 (0.1-1.2) X10*3/uL Eos # (Auto) 0.0 (0.0-0.4) X10*3/uL Baso # (Auto) 0.0 (0.0-0.2) X10*3/uL Abs Immat Gran (auto) 0.39 H (0.00-0.03) X10*3/uL Absolute Neuts (auto) 7.0 (2.0-8.3) x10*3/uL Absolute Nucleated RBC 0.000 (0.0-0.012) X10*3/uL Nucleated RBC % (auto) 0.0 (0.0-0.2) /100WBC PT (10.0-13.1) SEC INR (0.9-1.1) APTT (26.0-36.4) SEC O2 Saturation % ABG pH at Pt Temp (7.35-7.45) ABG pCO2 at Pt Temp (32-45) mmHg ABG pO2 at Pt Temp (83-108) mmHg ABG HCO3 (22-26) mmol/L ABG Base Excess (Actual) mmol/L VBG pH (7.32-7.43) VBG pCO2 mmHg VBG pO2 mmHg VBG HCO3 (22-26) mmol/L VBG O2 Saturation % VBG Base Excess mmol/L Sodium 142 (135-145) mmol/L Potassium 5.7 H D (3.3-5.1) mmol/L Chloride 101 (96-108) mmol/L Carbon Dioxide 19 L (22-29) mmol/L Anion Gap 28 H (12-20) BUN 27 H (9-16) mg/dL Creatinine 2.20 H (0.5-1.4) mg/dL Estim Creat Clear Calc 50.6 Estimated GFR 33 Random Glucose 121 H (60-115) mg/dL Lactic Acid (0.5-2.0) mmol/L Lactic Acid F/U @ 2Hr (0.5-2.0) mmol/L Lactic Acid F/U @ 4Hr (0.5-2.0) mmol/L Calcium 9.5 (8.4-10.2) mg/dL Magnesium 3.1 H (1.6-2.6) mg/dL Total Bilirubin 0.9 (0.0-1.0) mg/dL AST 167 H (5-37) U/L ALT 132 H (0-40) U/L Alkaline Phosphatase 89 (39-117) U/L Total Creatine Kinase 572 H (38-174) U/L Troponin I High Sens 32.0 (<3.5-35.0) ng/L B-Natriuretic Peptide (<100) pg/mL Total Protein 7.7 (6.5-8.0) g/dL Albumin 4.9 (3.5-5.0) g/dL Lipase 27 (8-78) U/L Urine Color Urine Appearance Urine pH (5.0-9.0) Ur Specific [place] (1.005-1.025) Urine Protein (Neg-Trace) mg/dL Urine Glucose (UA) (Negative) mg/dL Urine Ketones (Negative) mg/dL Urine Blood (Negative) Urine Nitrite (Negative) Ur Leukocyte Esterase (Negative) Urine RBC (0-2) /HPF Urine WBC (0-5) /HPF Ur Squamous Epith Cells (0-2) /HPF Urine Bacteria (None Seen) Hyaline Casts (0-2) /LPF Granular Casts Urine Opiates Screen (Not Detect) Urine Fentanyl Screen (Not Detect) Ur Barbiturates Screen (Not Detect) Ur Phencyclidine Scrn (Not Detect) Ur Amphetamines Screen (Not Detect) U Benzodiazepines Scrn (Not Detect) Urine Cocaine Screen (Not Detect) U Marijuana (THC) Screen (Not Detect) Influenza Type A (PCR) (Negative) Influenza Type B (PCR) (Negative) RSV RNA Qual (PCR) (Negative) SARS-CoV-2 RNA (RT-PCR) (Negative) 10/28/22 10/28/22 10/28/22 Range/Units 23:22 23:22 23:27 WBC (4.8-10.8) X10*3/uL RBC (4.60-5.80) X10*6/uL Hgb (14.0-18.0) g/dl Hct (42.0-52.0) % MCV (80.0-98.0) fL MCH (27.0-33.0) pg MCHC (31.0-36.0) g/dl RDW (11.0-16.0) % Plt Count (160-400) X10*3/uL MPV (9.4-12.4) fL Immature Gran % (Auto) (0.0-0.4) % Neut % (Auto) (45-73) % Lymph % (Auto) (20-40) % [place] % (Auto) (2-11) % Eos % (Auto) (0-4) % Baso % (Auto) (0-2) % Lymph # (Auto) (1.2-4.9) X10*3/uL [place] # (Auto) (0.1-1.2) X10*3/uL Eos # (Auto) (0.0-0.4) X10*3/uL Baso # (Auto) (0.0-0.2) X10*3/uL Abs Immat Gran (auto) (0.00-0.03) X10*3/uL Absolute Neuts (auto) (2.0-8.3) x10*3/uL Absolute Nucleated RBC (0.0-0.012) X10*3/uL Nucleated RBC % (auto) (0.0-0.2) /100WBC PT (10.0-13.1) SEC INR (0.9-1.1) APTT (26.0-36.4) SEC O2 Saturation % ABG pH at Pt Temp (7.35-7.45) ABG pCO2 at Pt Temp (32-45) mmHg ABG pO2 at Pt Temp (83-108) mmHg ABG HCO3 (22-26) mmol/L ABG Base Excess (Actual) mmol/L VBG pH 7.19 L* (7.32-7.43) VBG pCO2 55 mmHg VBG pO2 36 mmHg VBG HCO3 21 L (22-26) mmol/L VBG O2 Saturation 53.0 % VBG Base Excess -7.4 mmol/L Sodium (135-145) mmol/L Potassium (3.3-5.1) mmol/L Chloride (96-108) mmol/L Carbon Dioxide (22-29) mmol/L Anion Gap (12-20) BUN (9-16) mg/dL Creatinine (0.5-1.4) mg/dL Estim Creat Clear Calc Estimated GFR Random Glucose (60-115) mg/dL Lactic Acid (0.5-2.0) mmol/L Lactic Acid F/U @ 2Hr (0.5-2.0) mmol/L Lactic Acid F/U @ 4Hr (0.5-2.0) mmol/L Calcium (8.4-10.2) mg/dL Magnesium (1.6-2.6) mg/dL Total Bilirubin (0.0-1.0) mg/dL AST (5-37) U/L ALT (0-40) U/L Alkaline Phosphatase (39-117) U/L Total Creatine Kinase (38-174) U/L Troponin I High Sens (<3.5-35.0) ng/L B-Natriuretic Peptide 37 (<100) pg/mL Total Protein (6.5-8.0) g/dL Albumin (3.5-5.0) g/dL Lipase (8-78) U/L Urine Color Urine Appearance Urine pH (5.0-9.0) Ur Specific [place] (1.005-1.025) Urine Protein (Neg-Trace) mg/dL Urine Glucose (UA) (Negative) mg/dL Urine Ketones (Negative) mg/dL Urine Blood (Negative) Urine Nitrite (Negative) Ur Leukocyte Esterase (Negative) Urine RBC (0-2) /HPF Urine WBC (0-5) /HPF Ur Squamous Epith Cells (0-2) /HPF Urine Bacteria (None Seen) Hyaline Casts (0-2) /LPF Granular Casts Urine Opiates Screen (Not Detect) Urine Fentanyl Screen (Not Detect) Ur Barbiturates Screen (Not Detect) Ur Phencyclidine Scrn (Not Detect) Ur Amphetamines Screen (Not Detect) U Benzodiazepines Scrn (Not Detect) Urine Cocaine Screen (Not Detect) U Marijuana (THC) Screen (Not Detect) Influenza Type A (PCR) NEGATIVE (Negative) Influenza Type B (PCR) NEGATIVE (Negative) RSV RNA Qual (PCR) NEGATIVE (Negative) SARS-CoV-2 RNA (RT-PCR) NEGATIVE (Negative) 10/29/22 10/29/22 10/29/22 Range/Units 00:38 01:33 03:01 WBC (4.8-10.8) X10*3/uL RBC (4.60-5.80) X10*6/uL Hgb (14.0-18.0) g/dl Hct (42.0-52.0) % MCV (80.0-98.0) fL MCH (27.0-33.0) pg MCHC (31.0-36.0) g/dl RDW (11.0-16.0) % Plt Count (160-400) X10*3/uL MPV (9.4-12.4) fL Immature Gran % (Auto) (0.0-0.4) % Neut % (Auto) (45-73) % Lymph % (Auto) (20-40) % [place] % (Auto) (2-11) % Eos % (Auto) (0-4) % Baso % (Auto) (0-2) % Lymph # (Auto) (1.2-4.9) X10*3/uL [place] # (Auto) (0.1-1.2) X10*3/uL Eos # (Auto) (0.0-0.4) X10*3/uL Baso # (Auto) (0.0-0.2) X10*3/uL Abs Immat Gran (auto) (0.00-0.03) X10*3/uL Absolute Neuts (auto) (2.0-8.3) x10*3/uL Absolute Nucleated RBC (0.0-0.012) X10*3/uL Nucleated RBC % (auto) (0.0-0.2) /100WBC PT 12.7 (10.0-13.1) SEC INR 1.1 (0.9-1.1) APTT 24.1 L (26.0-36.4) SEC O2 Saturation % ABG pH at Pt Temp (7.35-7.45) ABG pCO2 at Pt Temp (32-45) mmHg ABG pO2 at Pt Temp (83-108) mmHg ABG HCO3 (22-26) mmol/L ABG Base Excess (Actual) mmol/L VBG pH (7.32-7.43) VBG pCO2 mmHg VBG pO2 mmHg VBG HCO3 (22-26) mmol/L VBG O2 Saturation % VBG Base Excess mmol/L Sodium (135-145) mmol/L Potassium (3.3-5.1) mmol/L Chloride (96-108) mmol/L Carbon Dioxide (22-29) mmol/L Anion Gap (12-20) BUN (9-16) mg/dL Creatinine (0.5-1.4) mg/dL Estim Creat Clear Calc Estimated GFR Random Glucose (60-115) mg/dL Lactic Acid 2.8 H* (0.5-2.0) mmol/L Lactic Acid F/U @ 2Hr 5.1 H* (0.5-2.0) mmol/L Lactic Acid F/U @ 4Hr (0.5-2.0) mmol/L Calcium (8.4-10.2) mg/dL Magnesium (1.6-2.6) mg/dL Total Bilirubin (0.0-1.0) mg/dL AST (5-37) U/L ALT (0-40) U/L Alkaline Phosphatase (39-117) U/L Total Creatine Kinase (38-174) U/L Troponin I High Sens (<3.5-35.0) ng/L B-Natriuretic Peptide (<100) pg/mL Total Protein (6.5-8.0) g/dL Albumin (3.5-5.0) g/dL Lipase (8-78) U/L Urine Color Urine Appearance Urine pH (5.0-9.0) Ur Specific [place] (1.005-1.025) Urine Protein (Neg-Trace) mg/dL Urine Glucose (UA) (Negative) mg/dL Urine Ketones (Negative) mg/dL Urine Blood (Negative) Urine Nitrite (Negative) Ur Leukocyte Esterase (Negative) Urine RBC (0-2) /HPF Urine WBC (0-5) /HPF Ur Squamous Epith Cells (0-2) /HPF Urine Bacteria (None Seen) Hyaline Casts (0-2) /LPF Granular Casts Urine Opiates Screen (Not Detect) Urine Fentanyl Screen (Not Detect) Ur Barbiturates Screen (Not Detect) Ur Phencyclidine Scrn (Not Detect) Ur Amphetamines Screen (Not Detect) U Benzodiazepines Scrn (Not Detect) Urine Cocaine Screen (Not Detect) U Marijuana (THC) Screen (Not Detect) Influenza Type A (PCR) (Negative) Influenza Type B (PCR) (Negative) RSV RNA Qual (PCR) (Negative) SARS-CoV-2 RNA (RT-PCR) (Negative) 10/29/22 10/29/22 10/29/22 Range/Units 04:07 05:14 05:17 WBC (4.8-10.8) X10*3/uL RBC (4.60-5.80) X10*6/uL Hgb (14.0-18.0) g/dl Hct (42.0-52.0) % MCV (80.0-98.0) fL MCH (27.0-33.0) pg MCHC (31.0-36.0) g/dl RDW (11.0-16.0) % Plt Count (160-400) X10*3/uL MPV (9.4-12.4) fL Immature Gran % (Auto) (0.0-0.4) % Neut % (Auto) (45-73) % Lymph % (Auto) (20-40) % [place] % (Auto) (2-11) % Eos % (Auto) (0-4) % Baso % (Auto) (0-2) % Lymph # (Auto) (1.2-4.9) X10*3/uL [place] # (Auto) (0.1-1.2) X10*3/uL Eos # (Auto) (0.0-0.4) X10*3/uL Baso # (Auto) (0.0-0.2) X10*3/uL Abs Immat Gran (auto) (0.00-0.03) X10*3/uL Absolute Neuts (auto) (2.0-8.3) x10*3/uL Absolute Nucleated RBC (0.0-0.012) X10*3/uL Nucleated RBC % (auto) (0.0-0.2) /100WBC PT (10.0-13.1) SEC INR (0.9-1.1) APTT (26.0-36.4) SEC O2 Saturation 95.0 % ABG pH at Pt Temp 7.30 L (7.35-7.45) ABG pCO2 at Pt Temp 43 (32-45) mmHg ABG pO2 at Pt Temp 76 L (83-108) mmHg ABG HCO3 21 L (22-26) mmol/L ABG Base Excess (Actual) -4.4 mmol/L VBG pH 7.25 L (7.32-7.43) VBG pCO2 54 mmHg VBG pO2 33 mmHg VBG HCO3 24 (22-26) mmol/L VBG O2 Saturation 51.0 % VBG Base Excess -3.1 mmol/L Sodium (135-145) mmol/L Potassium (3.3-5.1) mmol/L Chloride (96-108) mmol/L Carbon Dioxide (22-29) mmol/L Anion Gap (12-20) BUN (9-16) mg/dL Creatinine (0.5-1.4) mg/dL Estim Creat Clear Calc Estimated GFR Random Glucose (60-115) mg/dL Lactic Acid (0.5-2.0) mmol/L Lactic Acid F/U @ 2Hr (0.5-2.0) mmol/L Lactic Acid F/U @ 4Hr 2.4 H* (0.5-2.0) mmol/L Calcium (8.4-10.2) mg/dL Magnesium (1.6-2.6) mg/dL Total Bilirubin (0.0-1.0) mg/dL AST (5-37) U/L ALT (0-40) U/L Alkaline Phosphatase (39-117) U/L Total Creatine Kinase (38-174) U/L Troponin I High Sens (<3.5-35.0) ng/L B-Natriuretic Peptide (<100) pg/mL Total Protein (6.5-8.0) g/dL Albumin (3.5-5.0) g/dL Lipase (8-78) U/L Urine Color Urine Appearance Urine pH (5.0-9.0) Ur Specific [place] (1.005-1.025) Urine Protein (Neg-Trace) mg/dL Urine Glucose (UA) (Negative) mg/dL Urine Ketones (Negative) mg/dL Urine Blood (Negative) Urine Nitrite (Negative) Ur Leukocyte Esterase (Negative) Urine RBC (0-2) /HPF Urine WBC (0-5) /HPF Ur Squamous Epith Cells (0-2) /HPF Urine Bacteria (None Seen) Hyaline Casts (0-2) /LPF Granular Casts Urine Opiates Screen (Not Detect) Urine Fentanyl Screen (Not Detect) Ur Barbiturates Screen (Not Detect) Ur Phencyclidine Scrn (Not Detect) Ur Amphetamines Screen (Not Detect) U Benzodiazepines Scrn (Not Detect) Urine Cocaine Screen (Not Detect) U Marijuana (THC) Screen (Not Detect) Influenza Type A (PCR) (Negative) Influenza Type B (PCR) (Negative) RSV RNA Qual (PCR) (Negative) SARS-CoV-2 RNA (RT-PCR) (Negative) 10/29/22 10/29/22 Range/Units 06:31 06:31 WBC (4.8-10.8) X10*3/uL RBC (4.60-5.80) X10*6/uL Hgb (14.0-18.0) g/dl Hct (42.0-52.0) % MCV (80.0-98.0) fL MCH (27.0-33.0) pg MCHC (31.0-36.0) g/dl RDW (11.0-16.0) % Plt Count (160-400) X10*3/uL MPV (9.4-12.4) fL Immature Gran % (Auto) (0.0-0.4) % Neut % (Auto) (45-73) % Lymph % (Auto) (20-40) % [place] % (Auto) (2-11) % Eos % (Auto) (0-4) % Baso % (Auto) (0-2) % Lymph # (Auto) (1.2-4.9) X10*3/uL [place] # (Auto) (0.1-1.2) X10*3/uL Eos # (Auto) (0.0-0.4) X10*3/uL Baso # (Auto) (0.0-0.2) X10*3/uL Abs Immat Gran (auto) (0.00-0.03) X10*3/uL Absolute Neuts (auto) (2.0-8.3) x10*3/uL Absolute Nucleated RBC (0.0-0.012) X10*3/uL Nucleated RBC % (auto) (0.0-0.2) /100WBC PT (10.0-13.1) SEC INR (0.9-1.1) APTT (26.0-36.4) SEC O2 Saturation % ABG pH at Pt Temp (7.35-7.45) ABG pCO2 at Pt Temp (32-45) mmHg ABG pO2 at Pt Temp (83-108) mmHg ABG HCO3 (22-26) mmol/L ABG Base Excess (Actual) mmol/L VBG pH (7.32-7.43) VBG pCO2 mmHg VBG pO2 mmHg VBG HCO3 (22-26) mmol/L VBG O2 Saturation % VBG Base Excess mmol/L Sodium (135-145) mmol/L Potassium (3.3-5.1) mmol/L Chloride (96-108) mmol/L Carbon Dioxide (22-29) mmol/L Anion Gap (12-20) BUN (9-16) mg/dL Creatinine (0.5-1.4) mg/dL Estim Creat Clear Calc Estimated GFR Random Glucose (60-115) mg/dL Lactic Acid (0.5-2.0) mmol/L Lactic Acid F/U @ 2Hr (0.5-2.0) mmol/L Lactic Acid F/U @ 4Hr (0.5-2.0) mmol/L Calcium (8.4-10.2) mg/dL Magnesium (1.6-2.6) mg/dL Total Bilirubin (0.0-1.0) mg/dL AST (5-37) U/L ALT (0-40) U/L Alkaline Phosphatase (39-117) U/L Total Creatine Kinase (38-174) U/L Troponin I High Sens (<3.5-35.0) ng/L B-Natriuretic Peptide (<100) pg/mL Total Protein (6.5-8.0) g/dL Albumin (3.5-5.0) g/dL Lipase (8-78) U/L Urine Color Yellow Urine Appearance Turbid Urine pH 5.5 (5.0-9.0) Ur Specific [place] 1.025 (1.005-1.025) Urine Protein 300 (3+) H (Neg-Trace) mg/dL Urine Glucose (UA) Negative (Negative) mg/dL Urine Ketones Trace (Negative) mg/dL Urine Blood Large (3+) H (Negative) Urine Nitrite Negative (Negative) Ur Leukocyte Esterase Negative (Negative) Urine RBC 6-10 H (0-2) /HPF Urine WBC 6-10 H (0-5) /HPF Ur Squamous Epith Cells >20 (0-2) /HPF Urine Bacteria None Seen (None Seen) Hyaline Casts 6-10 (0-2) /LPF Granular Casts Present Urine Opiates Screen Not Detected (Not Detect) Urine Fentanyl Screen POSITIVE H (Not Detect) Ur Barbiturates Screen Not Detected (Not Detect) Ur Phencyclidine Scrn Not Detected (Not Detect) Ur Amphetamines Screen Not Detected (Not Detect) U Benzodiazepines Scrn Not Detected (Not Detect) Urine Cocaine Screen POSITIVE H (Not Detect) U Marijuana (THC) Screen POSITIVE H (Not Detect) Influenza Type A (PCR) (Negative) Influenza Type B (PCR) (Negative) RSV RNA Qual (PCR) (Negative) SARS-CoV-2 RNA (RT-PCR) (Negative) Discharge Plan Discharge Clinical Impression: Aspiration pneumonitis, Drug overdose, Hypoxia Patient Disposition: Admitted As Inpatient
--- NOTE | 2022-10-28 23:23 | PC.NURSE ---
pt BIBA s/p overdose at home. received 8mg narcan total in the field, pt awake, talking on arrival to ED but found to be 66-70% on room air. pt appeared cyanotic. placed on 15L nonrebreather, provider at bedside. ekg done, labs being obtained and chest xr to be done. pt reporting R sided chest pain and tightness. o2 up to 93% and color improved. on playground monitor, will CTM
[2022-10-28 23:29] LABS: MANUAL DIFF FLAG NO
[2022-10-28 23:30] LABS: Basophils Percent Auto 0.2 % (0-2); Eosinophils Percent Auto 0.1 % (0-4); Hematocrit 45.4 % (42.0-52.0); Hemoglobin 14.7 g/dl (14.0-18.0); Imm Gran Abs Auto 0.39 X10*3/uL (0.00-0.03); Imm Gran Pct Auto 4.4 % (0.0-0.4); Lymphocytes Percent Auto 11.7 % (20-40); Mean Corpuscular HGB Conc 32.4 g/dl (31.0-36.0); Mean Corpuscular Hemoglobin 28.3 pg (27.0-33.0); Mean Corpuscular Volume 87.3 fL (80.0-98.0); Mean Platelet Volume 8.9 fL (9.4-12.4); Monocytes Absolute Auto 0.5 X10*3/uL (0.1-1.2); Monocytes Percent Auto 5.5 % (2-11); Neutrophils Percent Auto 78.1 % (45-73); Platelet Count 310 X10*3/uL (160-400); Red Cell Distribution Width 13.9 % (11.0-16.0); White Blood Count 8.9 X10*3/uL (4.8-10.8)
[2022-10-28 23:41] LABS: VBG Base Excess -7.4 mmol/L; VBG HCO3 21 mmol/L (22-26); VBG pCO2 55 mmHg; VBG pH 7.19 (7.32-7.43); VBG pO2 36 mmHg
[2022-10-28 23:42] LABS: Venous Blood Gas Refer to POC result
[2022-10-28 23:53] LABS: Alanine Aminotransferase 132 U/L (0-40); Albumin Level 4.9 g/dL (3.5-5.0); Alkaline Phosphatase 89 U/L (39-117); Anion Gap 28 (12-20); Aspartate Amino Transferase 167 U/L (5-37); B Type Natriuretic Peptide 37 pg/mL (<100); Bilirubin Total 0.9 mg/dL (0.0-1.0); Blood Urea Nitrogen 27 mg/dL (9-16); Calcium 9.5 mg/dL (8.4-10.2); Carbon Dioxide 19 mmol/L (22-29); Chloride 101 mmol/L (96-108); Creatinine Clr Calc Pharmacy 50.6; Estimated Glomerular Filt Rate 33; Glucose Random 121 mg/dL (60-115); Lipase 27 U/L (8-78); Magnesium 3.1 mg/dL (1.6-2.6); Potassium 5.7 mmol/L (3.3-5.1); Sodium 142 mmol/L (135-145); Total Protein 7.7 g/dL (6.5-8.0)
[2022-10-28] MEDS: hydrOXYzine HCL 25 MG TABLET PO (23:58)
[2022-10-28] MEDS: 0.9 % Sodium Chloride 1,000 ML 999 ML IV (23:59)
[2022-10-29] VITALS (29 sets, daily range): BP systolic 78–122; BP diastolic 43–87; PULSE 55–96; RESP 11–27; TEMP 36.8–37; O2SAT 90–100
[2022-10-29 00:18] LABS: Influenza A PCR NEGATIVE (Negative); Influenza B PCR NEGATIVE (Negative); Resp Syncy Virus RNA Qual PCR NEGATIVE (Negative); SARS COV2 PCR INHOUSE NEGATIVE (Negative)
--- NOTE | 2022-10-29 00:40 | ECG_ITS ---
Test Reason : repeat Blood Pressure : / mmHG Vent. Rate : 095 BPM Atrial Rate : 095 BPM P-R Int : 138 ms QRS Dur : 102 ms QT Int : 366 ms P-R-T Axes : 069 021 048 degrees QTc Int : 459 ms Normal sinus rhythm Normal ECG When compared with ECG of 28-OCT-2022 23:05, No significant change was found Referred By: Zack Jeronimo Electronically Signed By:Kelby El
[2022-10-29] MEDS: Acetaminophen 325 MG TABLET 975 MG PO (00:44)
[2022-10-29] MEDS: Piperacillin Sodium/Tazobactam 3.375 GM in 0.9 % Sodium Chloride 50 ML IV ×3 (00:46→19:59)
[2022-10-29 01:02] LABS: Lactic Acid 2.8 mmol/L (0.5-2.0)
[2022-10-29] MEDS: Azithromycin 500 MG in 0.9 % Sodium Chloride 250 ML 125 MG IV (01:07)
[2022-10-29] MEDS: 0.9 % Sodium Chloride 1,000 ML 999 ML IV ×2 (01:07→08:52)
[2022-10-29 01:51] LABS: INTERNATIONAL NORM RATIO 1.1 (0.9-1.1); Prothrombin Time 12.7 SEC (10.0-13.1)
[2022-10-29 01:54] LABS: Partial Thromboplastin Time 24.1 SEC (26.0-36.4)
[2022-10-29 02:42] LABS: Reflex Lactate? Lactic Acid Added
[2022-10-29] MEDS: Lactated Ringers 1,000 ML 999 ML IV ×2 (02:56→04:54)
--- NOTE | 2022-10-29 02:56 | PC.NURSE ---
pt placed on bipap by respiratory for appox 1 hr. and then will repeat VBG. pt appears much more comfortable, respirations improved, even and unlabored. pt 96% o2. BP down to 79/43. MD Mckeon notified . will start another liter of fluids.
[2022-10-29 03:22] LABS: ~Lactic Acid-LAB USE ONLY 5.1 mmol/L (0.5-2.0)
[2022-10-29] MEDS: 0.9 % Sodium Chloride 2,381.37 ML 1000 ML IV (03:36)
--- NOTE | 2022-10-29 03:36 | PC.NURSE ---
BP up to 93/50 after third liter fluids. MD Mckeon notified. pt lethargic but responds to verbal stimuli appropriately
[2022-10-29] MEDS: Enoxaparin Sodium 80 MG/0.8 ML SYRINGE SUBCUT (03:44)
[2022-10-29 04:13] LABS: Venous Blood Gas Refer to POC result
[2022-10-29 04:14] LABS: VBG Base Excess -3.1 mmol/L; VBG HCO3 24 mmol/L (22-26); VBG pCO2 54 mmHg; VBG pH 7.25 (7.32-7.43); VBG pO2 33 mmHg
--- NOTE | 2022-10-29 04:16 | PC.NURSE ---
levofed not available in ED pyxis . nursing type disk quality control supervisor called. RN from ICU called and is bringing levofed to ED
[2022-10-29] MEDS: Norepinephrine Bitartrate/D5W 8 MG/250 ML PLAST..BAG 7.44 MG IV (04:36)
--- NOTE | 2022-10-29 04:40 | MHC.EDTECH ---
call out to [facility] for possible transfer at [phone], declined
--- NOTE | 2022-10-29 04:41 | MHC.EDTECH ---
call out to [facility] transfer line at [phone]
--- NOTE | 2022-10-29 04:50 | MHC.EDTECH ---
Pt is refusing to transfer to [place] per DR Jackson
[2022-10-29 05:04] LABS: Reflex Lactate? 2 Y
[2022-10-29 05:24] LABS: ABG Refer to POC result
[2022-10-29 05:25] LABS: ABG Base Excess -4.4 mmol/L; ABG HCO3 21 mmol/L (22-26); ABG pCO2 43 mmHg (32-45); ABG pO2 76 mmHg (83-108)
[2022-10-29 05:32] LABS: ~Lactic Acid-LAB USE ONLY 2.4 mmol/L (0.5-2.0)
--- NOTE | 2022-10-29 05:59 | PC.NURSE ---
per MD Chavez verbal order, keep pt on levofed drip at current dose rate despite map > 65. BP still 96/64. levofed continuing at 0.11 mcg/kg/min
--- NOTE | 2022-10-29 06:01 | PC.NURSE ---
pt taken off bipap by RT. placed on 3.5L nasal cannula. will CTM closely . pt awake, alert, speaking full sentences, drinking water no issues
[2022-10-29 06:39] LABS: Appearance Urine Turbid; Color Urine Yellow; Glucose Urine UA Negative (Negative); Leukocyte Esterase Urine Negative (Negative); Nitrite Urine Negative (Negative); PH 5.5 (5.0-9.0); Specific Gravity - Urine 1.025 (1.005-1.025); UMIC TRIGGER UACC YES; Urine Blood Large (3+) (Negative); Urine Ketones Trace mg/dL (Negative); Urine Protein 300 (3+) mg/dL (Neg-Trace)
[2022-10-29 06:46] LABS: Bacteria Urine None Seen (None Seen); Granular Casts Urine Present; Squamous Epithelial Cell Urine >20 /HPF (0-2); UACC Culture Trigger YES
[2022-10-29 06:49] LABS: Amphetamine Screen Urine Not Detected (Not Detect); Barbiturates, Urine Not Detected (Not Detect); Benzodiazepines Screen Urine Not Detected (Not Detect); Cannabinoid Screen Urine POSITIVE (Not Detect); Cocaine Screen Urine POSITIVE (Not Detect); Fentanyl, urine POSITIVE (Not Detect); Opiate Screen Urine Not Detected (Not Detect); Phencyclidine Screen Urine Not Detected (Not Detect)
--- NOTE | 2022-10-29 07:40 | PC.NURSE ---
levo drip continues, pt arousable to verbal stimuli. oxygen at 2L 95%
--- NOTE | 2022-10-29 08:54 | PC.NURSE ---
attempting to titrate pt off levo, fluids infusing. pt alert and oriented, resp even and unabored. sleeping on and off.
--- NOTE | 2022-10-29 09:05 | PHA.MEDREC ---
Pharmacy Consult ? Medication Reconciliation Pharmacy has completed the medication reconciliation. spoke with patient. Only takes clonidine and ibuprofen as needed.
--- NOTE | 2022-10-29 10:42 | HO.SUDE ---
Met with pt in ED13 after pt presented to [facility] following accidental overdose. Pt laying in bed, awake, alert, engages in conversation. Pt reports having been in recovery x 2 months and having a recurrence on Saturday and Saturday with crack cocaine. Pt reports he bought 1 bag heroin and used 1/3 of it to come down which resulted in overdose. Pt then states I don't want to talk about it anymore with anyone. Pt reports he is aware of recovery resources and declines referrals at this time. Pt declines [facility]. Educated pt on outpatient supports regarding stimulant use disorder, pt declines [facility] referral. Pt is voicing desire to discharge as he is supposed to be at work. Discussed risks involved with discharge, pt verbalizes understanding. Pt denies questions or concerns for t/w. Encouraged pt to reach out if needed.
--- NOTE | 2022-10-29 13:43 | PM.CCHP ---
History of Present Illness Date of Service: 10/29/22 Chief Complaint: Distributive shock 37-year-old gentleman with underlying history of polysubstance abuse admitted on 10/29/2022 with alteration of mental status, acute hypoxic respiratory failure, and distributive shock likely related to polysubstance abuse with an aspiration pneumonitis component. In emergency room patient was started on empiric antibiotics and pressor support. He was titrated down from non-rebreather to nasal cannula. Patient was admitted to intensive care unit. At the time of my evaluation he is fully awake and alert and answering questions appropriately. Review of Systems Constitutional: Constitutional: Denies daytime sleepiness, Denies excessive sweating, Denies fatigue, Denies fever(s), Denies lethargy, Denies malaise, Denies night sweats, Denies snoring and Denies weight loss Eyes: Eyes: Denies blurry vision and Denies itchy eyes ENT: Denies nasal congestion, Denies post nasal drip, Denies sinus pain, Denies sinus pressure and Denies other ( Thrush) Cardiovascular: Cardiovascular: Denies chest pain, Denies pedal edema, Reports dyspnea, Denies orthopnea and Denies paroxysmal nocturnal dyspnea Respiratory: Respiratory: Denies cough, Denies hemoptysis, Denies excessive phlegm production, Reports dyspnea, Denies snoring and Denies wheezing Gastrointestinal: Gastrointestinal: Denies abdominal pain and Denies heartburn Musculoskeletal: Musculoskeletal: Denies myalgias, Denies arthralgias and Denies joint swelling Integumentary/Breasts: Skin/Breast: Denies rash Neurologic: Denies memory loss and Denies seizure-like activity Psychiatric: Psychiatric: Denies abnormal sleep pattern, Denies anxiety and Denies memory loss Endocrine: Endocrine: Denies excessive sweating, Denies fatigue and Denies heat intolerance Hematologic/Lymphatic: Hematologic/Lymphatic: Denies easy bruising Allergic/Immunologic: Allergic/Immunologic: Denies itchy eyes, Denies seasonal rhinorrhea and Denies wheezing PMFSH Social History Social History Household Members: Significant Other Housing: Apartment Do you presently have visiting nurse or other home services: No Patient Tobacco Use Status: Former Tobacco user Tobacco use type: Cigarette Use of substances other than those prescribed or required for medical reasons: Yes Substance Use Type: Crack/Cocaine and Heroin Last Used Substance: Just Prior to Admission Advance Directives: No Advance Directives Information Provided: No service: No Sexual orientation: Straight/Heterosexual Meds Allergies Allergy/AdvReac Type Severity Reaction Status Date / Time No Known Allergies Allergy Unverified 07/11/22 14:21 [No Known Allergies*] Active Medications: Current Medications Heparin Sodium (Porcine) (Heparin Sodium,Porcine 5,000 Unit/Ml Vial) 5,000 unit SUBCUT Q8H VANESSA Norepinephrine Bitartrate (Levophed) 8 mg in 250 mls @ 0 mls/hr IV .Q0M VANESSA; Protocol Last Titration: 10/29/22 09:47 Dose: 0.05 mcg/kg/min, 7.44 mls/hr Piperacillin Sod/Tazobactam (Sod 3.375 gm/ Sodium Chloride) 50 mls @ 100 mls/hr IV Q6H VANESSA Vancomycin HCl (Vancomycin/Ns) 2,000 mg in 500 mls @ 250 mls/hr IV ONCE ONE Stop: 10/29/22 15:40 Pharmacy Consult (Consult Rx Perform Med Rec) 1 each MISCELLANE ONCE PRN PRN Reason: Consult order Pharmacy Consult (Consult Rx Vancomycin Dosing) 1 each MISCELLANE DAILY PRN PRN Reason: Consult order Home Medications Medication Instructions Recorded Confirmed Last Taken Type clonidine HCl 0.1 mg tablet 0.1 mg PO TID PRN anxiety 10/29/22 10/29/22 Unknown History ibuprofen 600 mg tablet 600 mg PO TID PRN Pain 10/29/22 10/29/22 Unknown History Physical Exam Vital Signs: Vital Signs: Last Vital Signs Temp 98.5 F 10/29/22 07:39 Pulse 73 10/29/22 11:34 Resp 18 10/29/22 11:34 BP 92/64 10/29/22 11:34 Pulse Ox 95 10/29/22 11:34 O2 Del Method Nasal Cannula 10/29/22 11:34 O2 Flow Rate 2 10/29/22 11:34 BMI result Body Mass Index 23.1 Const: General: no acute distress and alert Nutritional Appearance: not obese Orientation/consciousness: Other orientation findings ( oriented) HEENT: Head: Yes atraumatic Mouth: no other ( thrush) Throat: No postnasal drainage Eyes: General: appearance normal, both eyes and all related structures Sclerae: sclerae normal EOM: EOMs intact bilaterally Neck: Neck: Yes supple Lymphatic: no lymphadenopathy noted Resp: Effort & Inspection: normal respiratory effort and no use of accessory muscles Auscultation: clear to auscultation bilaterally Cardio: Rate: regular rate Rhythm: regular rhythm Heart sounds: no gallops, no murmurs and no rubs GI: Palpation (GI): Soft to palpation and Other GI palpation findings present ( nontender) Skin: General skin exam: other ( warm) Rashes: no rashes Extrem: General: No clubbing, No cyanosis and No edema Results Labs 10/28/22 23:22 10/28/22 23:22 Labs: Laboratory Results - last 24 hr 10/28/22 10/28/22 10/28/22 23:22 23:22 23:22 MCV 87.3 MCH 28.3 MCHC 32.4 RDW 13.9 Plt Count 310 MPV 8.9 L Immature Gran % (Auto) 4.4 H Neut % (Auto) 78.1 H Lymph % (Auto) 11.7 L [place] % (Auto) 5.5 Eos % (Auto) 0.1 Baso % (Auto) 0.2 Lymph # (Auto) 1.0 L [place] # (Auto) 0.5 Eos # (Auto) 0.0 Baso # (Auto) 0.0 Abs Immat Gran (auto) 0.39 H Absolute Neuts (auto) 7.0 Absolute Nucleated RBC 0.000 Nucleated RBC % (auto) 0.0 PT INR APTT O2 Saturation ABG pH at Pt Temp ABG pCO2 at Pt Temp ABG pO2 at Pt Temp ABG HCO3 ABG Base Excess (Actual) VBG pH VBG pCO2 VBG pO2 VBG HCO3 VBG O2 Saturation VBG Base Excess Anion Gap 28 H Estim Creat Clear Calc 50.6 Estimated GFR 33 Random Glucose 121 H Lactic Acid Lactic Acid F/U @ 2Hr Lactic Acid F/U @ 4Hr Calcium 9.5 Magnesium 3.1 H Total Bilirubin 0.9 AST 167 H ALT 132 H Alkaline Phosphatase 89 Total Creatine Kinase 572 H Troponin I High Sens 32.0 B-Natriuretic Peptide Total Protein 7.7 Albumin 4.9 Lipase 27 Urine Color Urine Appearance Urine pH Ur Specific [place] Urine Protein Urine Glucose (UA) Urine Ketones Urine Blood Urine Nitrite Ur Leukocyte Esterase Urine RBC Urine WBC Ur Squamous Epith Cells Urine Bacteria Hyaline Casts Granular Casts Urine Opiates Screen Urine Fentanyl Screen Ur Barbiturates Screen Ur Phencyclidine Scrn Ur Amphetamines Screen U Benzodiazepines Scrn Urine Cocaine Screen U Marijuana (THC) Screen Influenza Type A (PCR) Influenza Type B (PCR) RSV RNA Qual (PCR) SARS-CoV-2 RNA (RT-PCR) 10/28/22 10/28/22 10/28/22 23:22 23:22 23:27 MCV MCH MCHC RDW Plt Count MPV Immature Gran % (Auto) Neut % (Auto) Lymph % (Auto) [place] % (Auto) Eos % (Auto) Baso % (Auto) Lymph # (Auto) [place] # (Auto) Eos # (Auto) Baso # (Auto) Abs Immat Gran (auto) Absolute Neuts (auto) Absolute Nucleated RBC Nucleated RBC % (auto) PT INR APTT O2 Saturation ABG pH at Pt Temp ABG pCO2 at Pt Temp ABG pO2 at Pt Temp ABG HCO3 ABG Base Excess (Actual) VBG pH 7.19 L* VBG pCO2 55 VBG pO2 36 VBG HCO3 21 L VBG O2 Saturation 53.0 VBG Base Excess -7.4 Anion Gap Estim Creat Clear Calc Estimated GFR Random Glucose Lactic Acid Lactic Acid F/U @ 2Hr Lactic Acid F/U @ 4Hr Calcium Magnesium Total Bilirubin AST ALT Alkaline Phosphatase Total Creatine Kinase Troponin I High Sens B-Natriuretic Peptide 37 Total Protein Albumin Lipase Urine Color Urine Appearance Urine pH Ur Specific [place] Urine Protein Urine Glucose (UA) Urine Ketones Urine Blood Urine Nitrite Ur Leukocyte Esterase Urine RBC Urine WBC Ur Squamous Epith Cells Urine Bacteria Hyaline Casts Granular Casts Urine Opiates Screen Urine Fentanyl Screen Ur Barbiturates Screen Ur Phencyclidine Scrn Ur Amphetamines Screen U Benzodiazepines Scrn Urine Cocaine Screen U Marijuana (THC) Screen Influenza Type A (PCR) NEGATIVE Influenza Type B (PCR) NEGATIVE RSV RNA Qual (PCR) NEGATIVE SARS-CoV-2 RNA (RT-PCR) NEGATIVE 10/29/22 10/29/22 10/29/22 00:38 01:33 03:01 MCV MCH MCHC RDW Plt Count MPV Immature Gran % (Auto) Neut % (Auto) Lymph % (Auto) [place] % (Auto) Eos % (Auto) Baso % (Auto) Lymph # (Auto) [place] # (Auto) Eos # (Auto) Baso # (Auto) Abs Immat Gran (auto) Absolute Neuts (auto) Absolute Nucleated RBC Nucleated RBC % (auto) PT 12.7 INR 1.1 APTT 24.1 L O2 Saturation ABG pH at Pt Temp ABG pCO2 at Pt Temp ABG pO2 at Pt Temp ABG HCO3 ABG Base Excess (Actual) VBG pH VBG pCO2 VBG pO2 VBG HCO3 VBG O2 Saturation VBG Base Excess Anion Gap Estim Creat Clear Calc Estimated GFR Random Glucose Lactic Acid 2.8 H* Lactic Acid F/U @ 2Hr 5.1 H* Lactic Acid F/U @ 4Hr Calcium Magnesium Total Bilirubin AST ALT Alkaline Phosphatase Total Creatine Kinase Troponin I High Sens B-Natriuretic Peptide Total Protein Albumin Lipase Urine Color Urine Appearance Urine pH Ur Specific [place] Urine Protein Urine Glucose (UA) Urine Ketones Urine Blood Urine Nitrite Ur Leukocyte Esterase Urine RBC Urine WBC Ur Squamous Epith Cells Urine Bacteria Hyaline Casts Granular Casts Urine Opiates Screen Urine Fentanyl Screen Ur Barbiturates Screen Ur Phencyclidine Scrn Ur Amphetamines Screen U Benzodiazepines Scrn Urine Cocaine Screen U Marijuana (THC) Screen Influenza Type A (PCR) Influenza Type B (PCR) RSV RNA Qual (PCR) SARS-CoV-2 RNA (RT-PCR) 10/29/22 10/29/22 10/29/22 04:07 05:14 05:17 MCV MCH MCHC RDW Plt Count MPV Immature Gran % (Auto) Neut % (Auto) Lymph % (Auto) [place] % (Auto) Eos % (Auto) Baso % (Auto) Lymph # (Auto) [place] # (Auto) Eos # (Auto) Baso # (Auto) Abs Immat Gran (auto) Absolute Neuts (auto) Absolute Nucleated RBC Nucleated RBC % (auto) PT INR APTT O2 Saturation 95.0 ABG pH at Pt Temp 7.30 L ABG pCO2 at Pt Temp 43 ABG pO2 at Pt Temp 76 L ABG HCO3 21 L ABG Base Excess (Actual) -4.4 VBG pH 7.25 L VBG pCO2 54 VBG pO2 33 VBG HCO3 24 VBG O2 Saturation 51.0 VBG Base Excess -3.1 Anion Gap Estim Creat Clear Calc Estimated GFR Random Glucose Lactic Acid Lactic Acid F/U @ 2Hr Lactic Acid F/U @ 4Hr 2.4 H* Calcium Magnesium Total Bilirubin AST ALT Alkaline Phosphatase Total Creatine Kinase Troponin I High Sens B-Natriuretic Peptide Total Protein Albumin Lipase Urine Color Urine Appearance Urine pH Ur Specific [place] Urine Protein Urine Glucose (UA) Urine Ketones Urine Blood Urine Nitrite Ur Leukocyte Esterase Urine RBC Urine WBC Ur Squamous Epith Cells Urine Bacteria Hyaline Casts Granular Casts Urine Opiates Screen Urine Fentanyl Screen Ur Barbiturates Screen Ur Phencyclidine Scrn Ur Amphetamines Screen U Benzodiazepines Scrn Urine Cocaine Screen U Marijuana (THC) Screen Influenza Type A (PCR) Influenza Type B (PCR) RSV RNA Qual (PCR) SARS-CoV-2 RNA (RT-PCR) 10/29/22 10/29/22 06:31 06:31 MCV MCH MCHC RDW Plt Count MPV Immature Gran % (Auto) Neut % (Auto) Lymph % (Auto) [place] % (Auto) Eos % (Auto) Baso % (Auto) Lymph # (Auto) [place] # (Auto) Eos # (Auto) Baso # (Auto) Abs Immat Gran (auto) Absolute Neuts (auto) Absolute Nucleated RBC Nucleated RBC % (auto) PT INR APTT O2 Saturation ABG pH at Pt Temp ABG pCO2 at Pt Temp ABG pO2 at Pt Temp ABG HCO3 ABG Base Excess (Actual) VBG pH VBG pCO2 VBG pO2 VBG HCO3 VBG O2 Saturation VBG Base Excess Anion Gap Estim Creat Clear Calc Estimated GFR Random Glucose Lactic Acid Lactic Acid F/U @ 2Hr Lactic Acid F/U @ 4Hr Calcium Magnesium Total Bilirubin AST ALT Alkaline Phosphatase Total Creatine Kinase Troponin I High Sens B-Natriuretic Peptide Total Protein Albumin Lipase Urine Color Yellow Urine Appearance Turbid Urine pH 5.5 Ur Specific [place] 1.025 Urine Protein 300 (3+) H Urine Glucose (UA) Negative Urine Ketones Trace Urine Blood Large (3+) H Urine Nitrite Negative Ur Leukocyte Esterase Negative Urine RBC 6-10 H Urine WBC 6-10 H Ur Squamous Epith Cells >20 Urine Bacteria None Seen Hyaline Casts 6-10 Granular Casts Present Urine Opiates Screen Not Detected Urine Fentanyl Screen POSITIVE H Ur Barbiturates Screen Not Detected Ur Phencyclidine Scrn Not Detected Ur Amphetamines Screen Not Detected U Benzodiazepines Scrn Not Detected Urine Cocaine Screen POSITIVE H U Marijuana (THC) Screen POSITIVE H Influenza Type A (PCR) Influenza Type B (PCR) RSV RNA Qual (PCR) SARS-CoV-2 RNA (RT-PCR) Imaging Radiologist's Impressions: Impressions Chest X-Ray 10/28/22 23:53 IMPRESSION: Bronchial wall thickening can be seen with mild pulmonary edema or an airways process such as asthma or atypical/viral infection. Additional right perihilar/suprahilar opacification which could be due to alveolar edema, though consolidation from aspiration is also possible. Assessment and Plan (1) Aspiration pneumonitis: Status: Acute (2) Polysubstance abuse: Status: Acute (3) Acute respiratory failure with hypoxia: Status: Acute Plan Assessment: 37-year-old gentleman admitted with alteration of mental status secondary to polysubstance abuse, also with aspiration pneumonitis, and acute hypoxic respiratory failure with hypoxia, initially on non-rebreather, now titrated to 2 L via nasal cannula. Plan: Neuro: No acute issues. Cardiac: Distributive shock, likely secondary to polysubstance abuse/aspiration pneumonitis. Continue to titrate off pressor support as tolerated. Pulmonary: Acute hypoxic respiratory failure secondary to polysubstance abuse and aspiration pneumonitis, improved significantly. Now 2 L of supplemental oxygen via nasal cannula. Continue to titrate off as tolerated. Renal: No acute issues. Endo: No acute issues. GI: No acute issues. ID: Likely aspiration pneumonitis. Cultures are pending. Continue broad-spectrum antibiotics. Heme/Onc: No acute issues. Psych: No acute issues. Miscellaneous: No acute issues. Prophylaxis: Heparin Diet: Regular Critical care time spent: 45 minutes Time Spent With Patient Time: Total time managing care of this patient today ____ minutes.
[2022-10-29] MEDS: LORazepam 1 MG TABLET 2 MG PO ×2 (14:02→19:59)
[2022-10-29] MEDS: Heparin Sodium,Porcine 5,000 UNIT/ML VIAL 5000 UNIT SUBCUT ×2 (14:04→22:20)
[2022-10-29] MEDS: Acetaminophen 325 MG TABLET 650 MG PO ×2 (14:10→20:01)
[2022-10-29 14:43] LABS: VBG Base Excess -0.8 mmol/L; VBG HCO3 19 mmol/L (22-26); VBG pCO2 21 mmHg; VBG pH 7.56 (7.32-7.43); VBG pO2 116 mmHg
[2022-10-29 14:43] LABS: Basophils Absolute Auto 0.1 X10*3/uL (0.0-0.2); Basophils Percent Auto 0.6 % (0-2); Eosinophils Percent Auto 0.1 % (0-4); Hematocrit 36.9 % (42.0-52.0); Hemoglobin 12.2 g/dl (14.0-18.0); Imm Gran Abs Auto 0.01 X10*3/uL (0.00-0.03); Imm Gran Pct Auto 0.1 % (0.0-0.4); LEFT SHIFT? 1; Lymphocytes Absolute Auto 2.2 X10*3/uL (1.2-4.9); Lymphocytes Percent Auto 23.9 % (20-40); Mean Corpuscular HGB Conc 33.1 g/dl (31.0-36.0); Mean Corpuscular Hemoglobin 28.8 pg (27.0-33.0); Mean Corpuscular Volume 87.2 fL (80.0-98.0); Mean Platelet Volume 9.3 fL (9.4-12.4); Monocytes Absolute Auto 0.3 X10*3/uL (0.1-1.2); Monocytes Percent Auto 3.6 % (2-11); Neutrophils Absolute Auto 6.7 x10*3/uL (2.0-8.3); Neutrophils Percent Auto 71.7 % (45-73); Platelet Count 152 X10*3/uL (160-400); Red Blood Count 4.23 X10*6/uL (4.60-5.80); Red Cell Distribution Width 13.8 % (11.0-16.0); White Blood Count 9.3 X10*3/uL (4.8-10.8)
[2022-10-29 14:46] LABS: Venous Blood Gas Refer to POC result
[2022-10-29 15:09] LABS: MANUAL DIFF FLAG SCAN
[2022-10-29 15:10] LABS: SLIDE REVIEW VERIFIED
[2022-10-29 15:32] LABS: Alanine Aminotransferase 126 U/L (0-40); Albumin Level 3.2 g/dL (3.5-5.0); Alkaline Phosphatase 48 U/L (39-117); Anion Gap 10 (12-20); Aspartate Amino Transferase 260 U/L (5-37); Bilirubin Total 0.8 mg/dL (0.0-1.0); Blood Urea Nitrogen 25 mg/dL (9-16); Calcium 7.4 mg/dL (8.4-10.2); Carbon Dioxide 22 mmol/L (22-29); Chloride 108 mmol/L (96-108); Creatinine Clr Calc Pharmacy 94.3; Estimated Glomerular Filt Rate > 60; Glucose Random 109 mg/dL (60-115); Magnesium 1.8 mg/dL (1.6-2.6); Phosphorus 2.9 mg/dL (2.7-4.5); Sodium 136 mmol/L (135-145); Total Protein 4.8 g/dL (6.5-8.0)
[2022-10-29] MEDS: vancomycin/NS 2,000 MG/500 ML PLAST..BAG 250 MG IV (16:54)
--- NOTE | 2022-10-29 17:46 | PHA.PROG ---
Admission Date/Time: October 29, 2022 13:40 Indication: OTHER Weight in k.379 kg Serum Creatinine - Last 168 Hours 10/28/22 10/29/22 10/29/22 23:22 14:32 14:33 Creatinine 2.20 H 1.18 Cancelled Estimated CrCl and GFR - Last 168 Hours 10/28/22 10/29/22 10/29/22 23:22 14:32 14:33 Estim Creat Clear Calc 50.6 94.3 Cancelled Estimated GFR 33 > 60 Cancelled Vancomycin Loading Dose: 1999 Current Vancomycin Dosing Regimen: 1250 Q 24 Vancomycin Monitoring using AUC goal of 400 - 600 range with trough as surrogate marker: 546 Date and Time for next Vancomycin Level to be drawn: 09/30 @ 1500 Pharmacist Comments on Vancomycin Plan: Vancomycin dosing will take advantage of [employer] as a clinical decision support tool that uses Bayesian modeling to calculate individual patient's pharmacokinetic parameters and forecast the patient's drug concentration time course with the target goal AUC 24 range of 400 - 600 mg/L/hr.
[2022-10-29] MEDS: Lactated Ringers 1,000 ML 200 ML IVCONT (19:26)
[2022-10-30] VITALS (15 sets, daily range): BP systolic 101–127; BP diastolic 50–83; PULSE 67–92; RESP 14–27; TEMP 36.3–37.4; O2SAT 92–98; BMI 25.1
[2022-10-30] MEDS: Norepinephrine Bitartrate/D5W 8 MG/250 ML PLAST..BAG 10.42 MG IV (00:17)
[2022-10-30] MEDS: Lactated Ringers 1,000 ML 200 ML IVCONT ×2 (00:19→05:01)
[2022-10-30] MEDS: LORazepam 2 MG/ML VIAL IVPUSH (00:32)
[2022-10-30] MEDS: Piperacillin Sodium/Tazobactam 3.375 GM in 0.9 % Sodium Chloride 50 ML IV ×3 (01:58→12:59)
[2022-10-30 04:44] LABS: MANUAL DIFF FLAG NO
[2022-10-30 04:45] LABS: Basophils Percent Auto 0.2 % (0-2); Eosinophils Percent Auto 0.3 % (0-4); Hematocrit 35.2 % (42.0-52.0); Hemoglobin 12.1 g/dl (14.0-18.0); Imm Gran Abs Auto 0.03 X10*3/uL (0.00-0.03); Imm Gran Pct Auto 0.3 % (0.0-0.4); Lymphocytes Absolute Auto 2.2 X10*3/uL (1.2-4.9); Lymphocytes Percent Auto 23.1 % (20-40); Mean Corpuscular HGB Conc 34.4 g/dl (31.0-36.0); Mean Corpuscular Hemoglobin 28.3 pg (27.0-33.0); Mean Corpuscular Volume 82.2 fL (80.0-98.0); Mean Platelet Volume 8.9 fL (9.4-12.4); Monocytes Absolute Auto 0.4 X10*3/uL (0.1-1.2); Monocytes Percent Auto 4.4 % (2-11); Neutrophils Absolute Auto 6.9 x10*3/uL (2.0-8.3); Neutrophils Percent Auto 71.7 % (45-73); Platelet Count 180 X10*3/uL (160-400); Red Blood Count 4.28 X10*6/uL (4.60-5.80); Red Cell Distribution Width 13.3 % (11.0-16.0); White Blood Count 9.6 X10*3/uL (4.8-10.8)
[2022-10-30 04:47] LABS: VBG Base Excess 3.6 mmol/L; VBG HCO3 26 mmol/L (22-26); VBG pCO2 35 mmHg; VBG pH 7.48 (7.32-7.43); VBG pO2 88 mmHg
[2022-10-30 04:48] LABS: Venous Blood Gas Refer to POC result
[2022-10-30 05:18] LABS: Alanine Aminotransferase 143 U/L (0-40); Albumin Level 3.3 g/dL (3.5-5.0); Alkaline Phosphatase 61 U/L (39-117); Anion Gap 11 (12-20); Aspartate Amino Transferase 297 U/L (5-37); Bilirubin Total 1.8 mg/dL (0.0-1.0); Blood Urea Nitrogen 18 mg/dL (9-16); Calcium 8.3 mg/dL (8.4-10.2); Carbon Dioxide 24 mmol/L (22-29); Chloride 108 mmol/L (96-108); Creatinine Clr Calc Pharmacy 101.2; Estimated Glomerular Filt Rate > 60; Glucose Random 83 mg/dL (60-115); Magnesium 1.7 mg/dL (1.6-2.6); Phosphorus 1.8 mg/dL (2.7-4.5); Sodium 139 mmol/L (135-145); Total Protein 5.1 g/dL (6.5-8.0)
[2022-10-30] MEDS: Heparin Sodium,Porcine 5,000 UNIT/ML VIAL 5000 UNIT SUBCUT ×2 (06:13→13:01)
[2022-10-30] MEDS: Sodium,Potassium Phosphates POWD.PACK 2 PACKET PO (09:26)
[2022-10-30] MEDS: LORazepam 1 MG TABLET PO ×2 (10:01→16:19)
--- NOTE | 2022-10-30 11:04 | MHC.CM.PN ---
EMR REVIEWED, PT ADMITTED S/P OD, cm met w/pt whi is a&o, pt reports he lives w/his partner, is independent w/all care, denies use of dme/home services, cm attempted to discuss SA tx w/pt however pt is currently declining need for recovery team, pt declining inpt SA tx and MAT, will revisit w/pt closer to d/c. Pt declines being vaccinated for Covid19, pcp Lindsey Gauthier and pt educated on and declines to complete a HCP at this time, pt aware he can ask for CM if he changes his mind. Antic home no services w/c shuttle for transport once medically cleared.
[2022-10-30] MEDS: vancomycin HCL 1,250 MG in 0.9 % Sodium Chloride 250 ML 166.67 MG IV (16:18)
--- NOTE | 2022-10-31 17:17 | PM.DS ---
DS: Providers Provider Date of Service: 10/30/22 Date of admission: 10/29/22 13:40 Primary care physician: Rhonda Ortiz MD DS: Diagnosis Discharge Diagnosis (1) Aspiration pneumonitis: Status: Acute (2) Polysubstance abuse: Status: Acute (3) Acute respiratory failure with hypoxia: Status: Acute DS: Summary Hospital Course Hospital Course: I was informed that patient wanted to leave A, I went up and talked to him to see if anything could be done for him to stay and complete treatment, yet he was adamant that he was leaving and that he had been told the day prior that he was staying just overnight, I explaned that he had serious condition condition with pneumonitis, high CPK that needed IVF and monitoring and that can endangered his life if not treated properly then threatened his life and can even lead to . He was sound alert, oriented to self, place and time. He declined meds, including Abx. RN was present Final diagnosis: Distributive shock Rhabdomylosis aspiration pneumonititis Susbatance use desorder Time Spent with Patient Time attestation: Total time managing care of this patient today ____ minutes. Discharge coordination time: Greater than 30 minutes Quality: Safe Use of Opioids Does Pt have an Active Cancer Diagnosis on the Problem List?: No Quality: Stroke Does the patient have a stroke diagnosis?: No Physical Exam Vital Signs: Vital Signs: Last Vital Signs Temp 99.0 F 10/30/22 15:22 Pulse 83 10/30/22 15:22 Resp 14 10/30/22 15:22 BP 108/59 L 10/30/22 15:22 Pulse Ox 94 10/30/22 15:22 O2 Del Method Room Air 10/30/22 15:22 O2 Flow Rate 3 10/30/22 06:00 BMI result Body Mass Index 25.1 DS: Data Data Completed and Pending Labs on day of discharge: Preliminary micro results at discharge 10/29/22 00:38 Blood Culture - Preliminary Blood - Venous No growth after 48 hours. 10/29/22 00:38 Blood Culture - Preliminary Blood - Venous No growth after 48 hours. Discharge Plan Discharge Anticipated Discharge Date/Time: 10/30/22 17:16 Patient Disposition: Left Against Medical Advice Discharge Diagnosis: Acute hypoxic respiratory failure, substance use Referrals: Rhonda Ortiz MD [Primary Care Provider] - 1 Week Discharge Medications: No Action clonidine HCl 0.1 mg tablet 0.1 mg PO TID PRN (Reason: anxiety) ibuprofen 600 mg tablet 600 mg PO TID PRN (Reason: Pain) Discharge Orders: Discharge Order (Routine); Ordered 10/31/22 Ordered By: Julio Bernard Diet: Advance to usual diet Activity on Discharge: As tolerated Care Plan Goals: Left AMA Health Concerns: Left AMA Plan of Treatment: Left ABD Assessment: Left AMA Discharge Date/Time: 10/30/22 17:46
== END 2022-10-30 17:46 | disposition left against medical advice (07) | DRG 720 ==
LOC: HO.ED 10-29 08:04 → HO.EDOVER 10-29 14:06 → HO.ICU 10-29 15:45 → HO.IMC 10-30 06:57
PROVIDERS: Emergency Medicine; Internal Medicine; Physician Assistant; Registered Nurse Community Health; Admitting Provider Internal Medicine Pulmonary Disease; Emergency Provider Emergency Medicine; PCP Internal Medicine; Visit Provider Internal Medicine
DX: A41.9 Sepsis, unspecified organism (principal); J96.01 Acute respiratory failure with hypoxia; R65.21 Severe sepsis with septic shock; J69.0 Pneumonitis due to inhalation of food and vomit; T50.911A Poisoning by multiple unspecified drugs, medicaments and biological substances, accidental (unintentional), initial encounter; M62.82 Rhabdomyolysis; Z20.822 Contact with and (suspected) exposure to COVID-19; Z87.891 Personal history of nicotine dependence; Z79.899 Other long term (current) drug therapy
CPT/HCPCS: 0241U; 36415; 71045; 80053; 80307; 81001; 82550; 82803; 83605; 83690; 83735; 83880; 84100; 84484; 85025; 85610; 85730; 87040; 87086; 93005; 99285; J0456; J1643; J1650; J2060; J2543; J3370; J3371

== ENCOUNTER 2024-07-22 08:58 | Outpatient (AMB) | payer OTHER, SELFPAY ==
--- NOTE | 2024-07-22 09:01 | A.OFFVIS_ITS ---
Vital Signs 07/22/24 09:08 Height 6 ft 1 in Weight 185 lb BMI 24.4 BP 149/78 H Blood Pressure Location Rt brachial Position Sitting Pulse 54 Intake Visit Reasons: hernia Intake Note: Patient referred by pcp Dr. Ortiz for hernia. Present for several yrs. Patient c/o: recently became bothersome. Telecommunication Operator Required: No Accompanied by: Self / Same As Patient Allergies No Known Allergies [No Known Allergies*] Allergy (Unverified 07/22/24 09:09) HPI Comments Details: Patient was a very healthy 39-year-old male who presents here with a 2 year history of symptomatic enlarging umbilical hernia. Because of progression of symptoms, he presents here for further evaluation. He is otherwise tolerating a diet. He has regular bowel habits. He does work out regularly. 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 Chart was reviewed and patient evaluated REPLACED BY [facility] Medical History (Updated 07/22/24 @ 09:06 by SAMMY Berman) Discoid meniscus of left knee Family History (Updated 07/22/24 @ 09:07 by SAMMY Berman) Mother Ovarian ca Social History Household Members: Significant Other Housing: Apartment Do you presently have visiting nurse or other home services: No Patient Tobacco Use Status: Former Tobacco user Tobacco use type: Cigarette Substance Use Type: Crack/Cocaine, Heroin and Marijuana service: No Current occupational status: disabled Sexual orientation: Straight/Heterosexual Physical Exam Vital Signs: Last Vital Signs Pulse 54 07/22/24 09:08 BP 149/78 H 07/22/24 09:08 BMI result Body Mass Index 24.4 Const Other: Very well-developed male Chest Other: Chest breath sounds bilaterally, HS 1 in 2 GI Other: Patient was examined both supine and standing with Valsalva. Bilateral groin exam negative. Genitalia within normal limits. Patient was a roughly 2 cm irreducible umbilical hernia. Assessment & Plan Assessment & Plan (1) Incarcerated umbilical hernia: Code(s): K42.0 - Umbilical hernia with obstruction, without gangrene Category: Surgical Plan Risks, benefits, and alternatives of open umbilical hernia repair with possible mesh were reviewed with the patient and included but not limited to bleeding, infection, recurrence, numbness, pain, scarring, bowel injury and the patient wishes to proceed. All questions answered. I stressed that he needs to be relatively inactive/no heavy lifting for a few weeks postoperatively and he understands. Arrangements will be made for this on a day which is convenient for him. Coding Level of Care Code New Pt Level 5 (99112) Diagnoses Incarcerated umbilical hernia K42.0
[2024-07-22 09:08] VITALS: BP 149/78; PULSE 54; BMI 24.4
--- OUTSIDE RECORDS SUMMARY | 2024-07-22 09:49 | XMS_ITS | Clinical Summary ---
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 Name Role Phone Unavailable Primary Care Provider Unavailabl e Social History Tobacco Use Types Packs/Day Years Used Date Smoking Tobacco: Never Assessed Sex and Gender Information Value Date Recorded Sex Assigned at Not on file Legal Sex Male 10:43 AM EST Gender Identity Not on file Sexual Orientation Not on file Plan of Treatment Health Maintenance Due Date Last Done Comments DTaP,Tdap,and Td Vaccines (1 - Tdap) 2002 Hepatitis B Vaccines (1 of 3 - 19+ 3-dose series) 2002 COVID-19 Vaccine (2023-2 5 season) 2024 Influenza Vaccine (#1) 2024 HIB Vaccines Aged Out No longer eligi ble based on patient's age to complete this topic HPV Vaccines Aged Out No longer eligi ble based on patient's age to complete this topic Hepatitis A Vaccines Aged Out No long er eligible based on patient's age to complete this topic IPV Vaccines Aged Out No longer eligi ble based on patient's age to complete this topic MMR Vaccines Aged Out No longer eligi ble based on patient's age to complete this topic Meningococcal ACWY Vaccine Aged Out N o longer eligible based on patient's age to complete this topic Meningococcal B Vacine Aged Out No lo nger eligible based on patient's age to complete this topic Pneumococcal Vaccine: Pediat rics (0 to 5 Years) and At-Risk Patients (6 to 64 Years) Aged Out No longer eligible b ased on patient's age to complete this topic RSV Immunization Patients Un asher 20 months Aged Out No longer eligible b ased on patient's age to complete this topic Varicella Vaccines Aged Out No longer eligible based on patient's age to complete this topic
== END 2024-07-22 09:14 | disposition home or self-care (01) ==
PROVIDERS: PCP Internal Medicine; Visit Provider Surgery
DX: K42.0 Umbilical hernia with obstruction, without gangrene (principal)
CPT/HCPCS: 99204

== ENCOUNTER → 2024-07-22 08:58 | Outpatient (BNVA) | payer OTHER, SELFPAY | PROVIDERS: PCP Internal Medicine; Visit Provider Surgery | DX: K42.0 Umbilical hernia with obstruction, without gangrene (principal) | CPT/HCPCS: 99202 ==

== ENCOUNTER 2024-08-18 | Outpatient (REF) | payer OTHER, SELFPAY ==
[2024-08-18 13:04] VITALS: BP 119/74; PULSE 57; RESP 16; O2SAT 99; BMI 24.4
[2024-08-18 14:31] LABS: Hematocrit 42.9 % (42.0-52.0); Mean Corpuscular Hemoglobin 29.5 pg (27.0-33.0); Mean Corpuscular Volume 84.4 fL (80.0-98.0); Mean Platelet Volume 9.1 fL (9.4-12.4); Platelet Count 275 X10*3/uL (160-400); Red Blood Count 5.08 X10*6/uL (4.60-5.80); Red Cell Distribution Width 12.6 % (11.0-16.0); White Blood Count 8.6 X10*3/uL (4.8-10.8)
[2024-08-18 15:08] LABS: Anion Gap 10 (12-20); Blood Urea Nitrogen 20 mg/dL (9-16); Calcium 9.5 mg/dL (8.4-10.2); Carbon Dioxide 29 mmol/L (22-29); Chloride 105 mmol/L (96-108); Creatinine Clr Calc Pharmacy 123.4; Estimated Glomerular Filt Rate > 60; Glucose Random 84 mg/dL (60-115); Potassium 4.2 mmol/L (3.3-5.1); Sodium 140 mmol/L (135-145)
--- NOTE | 2024-08-26 09:06 | MHC.SHP ---
Pre-Procedural Eval Section A - 24 Hr Update-Section A only Date of Service: 08/27/24 The patient is an INPATIENT: No Section B - Complete if H&P > 30 days Chief Complaint: Umbilical hernia with obstruction, without gangren Allergies: Allergies Allergy/AdvReac Type Severity Reaction Status Date / Time No Known Allergies Allergy Unverified 07/22/24 09:09 [No Known Allergies*] Review of Systems Sugical H&P ROS: Negative: Constitution, Cardiovascular, Respiratory, Neurological, Psychiatric, Hem-Onc, Allergic/Immunologic, Gastrointestinal, Genitourinary, Musculoskeletal, Integumentary, Endocrine and Eyes/Ears/Nose/Throat Exam Surgical H&P Exam: Normal: HEENT, Normal: Heart, Normal: Lungs, Normal: Extremities, Normal: Abdomen, Normal: Skin and Normal: Neurological Plan I have reviewed the history and physical and performed a pertinent physical examination on my patient. No changes have occurred unless specified. Time Spent With Patient Time: Total time managing care of this patient today ____ minutes.
--- NOTE | 2024-08-26 10:19 | P.CONAN_ITS ---
HPI - Anesthesia Eval Consult details Narrative: 39yo M for Hernial Umbilical Irreducible, with mesh PMFSH Active Problems Active Problems: All Active Problems Incarcerated umbilical hernia (Acute) Acute respiratory failure with hypoxia (Acute) Polysubstance abuse (Acute) Hypoxia (Acute) Drug overdose (Acute) Aspiration pneumonitis (Acute) Cocaine use disorder, moderate, dependence (Acute) Opioid use disorder, moderate, dependence (Acute) MDD (major depressive disorder), recurrent episode, moderate (Acute) Past Medical History Medical History (Updated 08/18/24 @ 13:20 by Corina Pabon RN) Asthma Seasonal allergies Ingrown toenail of left foot (~1999) Discoid meniscus of left knee Family History Family History (Updated 07/22/24 @ 09:07 by SAMMY Berman) Mother Ovarian ca Surgical History Surgical History (Updated 08/18/24 @ 13:03 by Corina Pabon RN) [place] teeth extracted Hx of arthroscopy of left knee (2012) Social History Social History Household Members: Significant Other Housing: Apartment Are you a primary director of career services to a significant other at home: No Do you presently have visiting nurse or other home services: No Comment: aware of trip hazard Patient Tobacco Use Status: Former Tobacco user Tobacco use type: Cigarette Substance Use Type: Crack/Cocaine, Heroin and Marijuana Substance Use Type Other:: quit heroin and cocaine 2014 Substance Use Frequency: Daily Have you been hit, kicked, punched, or otherwise hurt by someone within the past year? If so, by whom?: No Are you DNR?: No Advance Directives: No Advance Directives Information Provided: Yes Advance Directives on File: No Recently lost weight without trying: No Nutrition Risks: No Nutritional Risk service: No Current occupational status: disabled Sexual orientation: Straight/Heterosexual Meds Allergies Allergy/AdvReac Type Severity Reaction Status Date / Time No Known Allergies Allergy Unverified 07/22/24 09:09 [No Known Allergies*] Home Medications ?Medication ?Instructions ?Recorded ?Confirmed ?Last Taken ?Type Roberts Pollen 08/18/24 Unknown History Tongkat 08/18/24 Unknown History albuterol sulfate 90 mcg/actuation 2 puff inhalation Q4-6H PRN 08/18/24 08/18/24 Unknown History aerosol inhaler Shortness Of Breath Or Wheezing ibuprofen 200 mg tablet 400 mg PO Q6H PRN Pain 08/18/24 08/18/24 Unknown History magnesium 200 mg tablet 400 mg PO DAILY 08/18/24 08/18/24 Unknown History zinc 08/18/24 Unknown History Exam Height,Weight and Vital Signs: Height 6 ft 1 in Weight 83.9 kg Last Vital Signs Pulse 57 08/18/24 13:04 Resp 16 08/18/24 13:04 BP 119/74 08/18/24 13:04 Pulse Ox 99 08/18/24 13:04 O2 Del Method Room Air 08/18/24 13:04 Pertinent Lab Results Pertinent Lab Results: Laboratory Tests 08/18/24 13:55 WBC 8.6 RBC 5.08 Hgb 15.0 D Hct 42.9 D MCV 84.4 MCH 29.5 MCHC 35.0 RDW 12.6 Plt Count 275 D MPV 9.1 L Absolute Nucleated RBC 0.000 Nucleated RBC % (auto) 0.0 Sodium 140 Potassium 4.2 Chloride 105 Carbon Dioxide 29 Anion Gap 10 L BUN 20 H Creatinine 0.89 Estim Creat Clear Calc 123.4 Estimated GFR > 60 Random Glucose 84 Calcium 9.5 D Assessment and Plan Assessment Anesthesia Assessment: Chart Reviewed
--- OUTSIDE RECORDS SUMMARY | 2024-11-19 14:38 | XMS_ITS | Clinical Summary ---
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
== END 2024-08-18 00:01 | disposition home or self-care (01) ==
LOC: HO.PAT
PROVIDERS: Anesthesiology; PCP Internal Medicine; Visit Provider Surgery
DX: Z01.818 Encounter for other preprocedural examination (principal); K42.0 Umbilical hernia with obstruction, without gangrene
CPT/HCPCS: 36415; 80048; 85027